=== PATIENT | male | born 1960 | race Caucasian/White ===

== ENCOUNTER 2016-03-21 05:48 | Inpatient (IN) | payer BC ==
--- NOTE | 2016-03-17 22:05 | HP ---
HISTORY AND PHYSICAL: DATE OF ADMISSION: 03/21/16 CHIEF COMPLAINT: H and P for a right total hip replacement. HISTORY OF PRESENT ILLNESS: Mr. Resendez is a 56-year-old gentleman with chronic right knee pain due to advanced degenerative osteoarthritis. His pain is an 8-9 /10 and he states that he is no longer able to walk even a block without significant pain. The patient has failed all conservative therapy including NSAIDs, physical therapy, and steroid injection. The patient is ready to pursue an elective right total knee arthroplasty. PAST MEDICAL HISTORY: 1. Hyperlipidemia. 2. Type 2 diabetes mellitus, uncontrolled. 3. Metabolic syndrome X. 4. Essential hypertension. 5. Pure hypercholesterolemia. PAST SURGICAL HISTORY: 1. Lumbar laminectomy in 1979. 2. Left ankle fracture ORIF in 1994. 3. Right elbow tendon rupture, unknown date. 4. Right knee meniscus in 2008. 5. Right foot toe ostectomy in 2010. 6. Varicose vein laser therapy, unknown date. 7. Right knee arthroscopy/meniscus repair in 2015. MEDICATIONS: 1. Irbesartan 75 mg 1 tablet every morning. 2. Pravastatin sodium 5 mg 1 tablet by mouth once daily at bedtime. 3. Januvia 100 mg 1 by mouth every day. 4. Metformin hydrochloric acid 1000 mg by mouth twice a day. 5. Ibuprofen 800 mg. 6. Glipizide 5 mg. ALLERGIES: No known drug allergies. FAMILY HISTORY: Father, history of myocardial infarction. Mother, history of diabetes. Paternal grandfather, myocardial infarction. SOCIAL HISTORY: The patient denies any smoking or illicit drug use. The patient admits to drinking alcohol 12-24 ounces on the weekends. The patient lives with his . REVIEW OF SYSTEMS: General: Denies fevers, chills, or night sweats. The patient has no known anesthesia problems. HEENT: Denies headache, lightheadedness, or syncopal episodes. Cardiothoracic: Denies any chest pain, heart palpitations, or edema. Pulmonary: Denies any shortness of breath with exertion, chronic cough, or COPD. GI: Denies any nausea, vomiting, diarrhea, or constipation. : Denies any nocturia, urinary frequency, urinary urgency, or kidney issues. MSK: Positive for right knee pain and denies any chronic or intermittent back pain or fractures. No neck pain. Neuro: Denies any paresthesias, numbness, seizures, strokes. Integumentary: Denies any abrasions , lesions, rashes, lumps, or open sores. Endocrine: Denies any diabetes or thyroid issues. Hematology: Denies any easy bruising, anemia, excessive bleeding, or history of DVTs. PHYSICAL EXAMINATION GENERAL: The patient is alert, awake, and oriented, in no acute distress. HEENT: Normocephalic, atraumatic. Hearing and vision are grossly intact. PULMONARY: Lungs are clear to auscultation bilaterally with no wheezes, rales, or rhonchi. CARDIO: Regular rate and rhythm with S1 and S2. No appreciable S3, S4. No murmurs, rubs, or gallops. GI: Normoactive bowel movements in all 4 quadrants with no pain to palpation in all 4 quadrants. MSK: Right lower extremity, the patient's skin is intact, moderate effusion of the knee joint. The patient is able to flex 10 to 120 degrees. No varus or valgus instability. Distally, the patient has 5/5 ankle plantar flexion and dorsiflexion strength. Full sensation to light touch in all nerve distributions and a +2 palpable dorsalis pedis and posterior tibialis pulse. IMPRESSION: Right knee osteoarthritis. PLAN: The patient will undergo a right total knee arthroplasty with Dr. Fox on 03/21/16. The patient has been medically cleared by his primary care provider. He will return to the office in 10 to 14 days for suture removal and followup. X-rays will be obtained at his postop visit. A prescription for Percocet 5/325 has been sent to the pharmacy on record for post- operative pain management. Scripts for Coumadin for postop DVT prophylaxis and Colace to be used as needed for constipation were e-scripted as well. ALEXIS BLEDSOE [id number]/[facility] #: [id number] [facility]
[2016-03-21] MEDS ORDERED: Buffered Lidocaine 1% SYR 3ML* 3 ML/SYR SYRINGE INTRADERM ONE (06:00)
[2016-03-21] MEDS ORDERED: Metoclopramide IV* 5 MG/ML 2 ML VIAL IV SLOW PU ONE (06:00)
[2016-03-21] MEDS ORDERED: Famotidine IV* 10 MG/ML 2 ML (20 mg) IV ONE (06:00)
[2016-03-21] MEDS ORDERED: Metoclopramide IV* 5 MG/ML 2 ML VIAL ONE (06:12)
[2016-03-21] MEDS ORDERED: Famotidine IV* 10 MG/ML 2 ML (20 mg) ONE (06:13)
[2016-03-21] MEDS ORDERED: ceFAZolin 2 GM PREMIX (*) 2 GM/50 ML BAG IVPB ONE (06:13)
[2016-03-21] MEDS ORDERED: Buffered Lidocaine 1% SYR 3ML* 3 ML/SYR SYRINGE ONE (06:13)
[2016-03-21] MEDS ORDERED: Morphine PF AMP (0.5MG/ML)* 5 MG/10 ML AMP ONE (06:51)
[2016-03-21] MEDS ORDERED: fentaNYL* 50 MCG/ML 2 ML VIAL (100 MCG VIAL) ONE (06:51)
[2016-03-21] MEDS ORDERED: Midazolam* 1 MG/ML 5 ML VIAL (5 MG) ONE (06:51)
[2016-03-21] MEDS ORDERED: Dexmedetomidine* 200 MCG/2 ML 2 ML VIAL ONE (06:55)
[2016-03-21] MEDS ORDERED: Bupivacaine 0.5% SDV PF* 30 ML VIAL ONE (06:55)
[2016-03-21] MEDS ORDERED: Propofol* 10 MG/ML 20 ML BTL IV PUSH ONE (06:55)
[2016-03-21] MEDS ORDERED: Polyethylene Glycol 3350* 17 GM PACKET PO PRN (10:27)
[2016-03-21] MEDS ORDERED: Acetaminophen TAB* 325 MG PO PRN (10:27)
[2016-03-21] MEDS ORDERED: Bisacodyl SUPP* 10 MG SUPP PR PRN (10:27)
[2016-03-21] MEDS ORDERED: fentaNYL* 50 MCG/ML 2 ML VIAL (100 MCG VIAL) IV PRN (10:58)
[2016-03-21] MEDS ORDERED: Nalbuphine* 20 MG/ML 1 ML VIAL IV PRN (10:58)
[2016-03-21] MEDS ORDERED: oxyCODONE/Acetamin 5/325 MG* TAB PO PRN (10:58)
[2016-03-21] MEDS ORDERED: Naloxone* 0.4 MG/ML 1 ML VIAL IV PRN (10:58)
[2016-03-21] MEDS ORDERED: DiMENhydriNATE IV* 50 MG/ML VIAL IV PUSH PRN ×2 (10:58)
[2016-03-21] MEDS ORDERED: PROCHLORPERAZINE INJ 5 MG/ML 2 ML VIAL IV PRN ×2 (10:58)
[2016-03-21] MEDS ORDERED: Ondansetron INJ* 2 MG/ML VIAL IV PRN ×2 (10:58)
--- NOTE | 2016-03-21 11:31 | RAD ---
Indication: Post op RIGHT total knee replacement. Comparison: February 05, 2016 Technique: Portable AP and cross table lateral views RIGHT knee. Report: Status post total knee replacement. Post-op fluid and gas is seen in the joint space and anterior subcutaneous tissues. Alignment is anatomic. No periprosthetic fracture evident. IMPRESSION: Normal post-op appearance following total knee replacement.
--- NOTE | 2016-03-21 12:52 | RAD ---
CPT II Codes: 6045F INDICATION: Right knee replacement. Fluoroscopic services provided for referring physician for right knee replacement. 3 spot images demonstrates right knee replacement in place. IMPRESSION: Fluoroscopic services provided for referring physician for right knee replacement.
[2016-03-21] MEDS: ceFAZolin 1 GM in Dextrose (*) 1 GM/50 ML BAG IVPB SCH (16:58)
[2016-03-21] MEDS ORDERED: Warfarin TAB(*) 6 MG PO ONE (17:00)
[2016-03-21] MEDS ORDERED: Dextrose 50% Syringe 50 ML* 25 GM/50 ML SYRINGE IV PUSH PRN (17:41)
[2016-03-21] MEDS ORDERED: metFORMIN* 500 MG TAB PO SCH (21:00)
[2016-03-21] MEDS: Docusate CAP* 100 MG PO SCH (21:27)
--- NOTE | 2016-03-21 23:06 | CONS ---
CONSULTATION REPORT: DATE OF CONSULT: 03/21/16 PRIMARY CARE PROVIDER: Tony Reeder MD. ATTENDING PHYSICIAN: Anoop Covarrubias MD (dictated by Zo Loo NP) PHYSICIAN REQUESTING CONSULTATION: Kianna Fox MD. REASON FOR CONSULTATION: Comanagement in the patient with a history of hypertension and diabetes mellitus. HISTORY OF PRESENT ILLNESS: Mr. Resendez is a 56-year-old male with a past medical history significant for diabetes mellitus, hyperlipidemia and essential hypertension who presents to the hospital today for an elective right total knee arthroplasty with Dr. Fox. Postoperatively, the patient is doing well, states that his pain is controlled. The patient states that leading up to his surgery, he has been in a good state of health except for right knee pain. The patient states that his diabetes is controlled with glucoses generally in the morning at 120 to 140 and in the evenings 90 to 115. The patient denies any fever, chills, chest pain, shortness of breath. He does report some nausea postoperatively. Hospitalists were asked to assist with management of the patient during the postoperative period. PAST MEDICAL HISTORY: 1. Hyperlipidemia. 2. Diabetes mellitus. 3. Metabolic syndrome X. 4. Essential hypertension. PAST SURGICAL HISTORY: 1. Status post a right knee arthroscopy and meniscus repair in 2015. 2. Status post varicose vein laser surgery. 3. Status post right toe ostectomy in 2010. 4. Status post lumbar laminectomy in 1979. 5. Status post left ankle ORIF in 1994. 6. Status post right elbow tendon rupture repair. 7. Status post a right knee meniscus repair in 2008. HOME MEDICATIONS: Include: 1. Irbesartan 75 mg oral daily. 2. Pravastatin 5 mg oral daily. 3. Januvia 100 mg oral daily. 4. Metformin 1000 mg oral twice daily. 5. Motrin 800 mg oral every 6 hours as needed for pain. 6. Glipizide 5 mg oral daily. ALLERGIES: No known drug allergies. FAMILY HISTORY: The patient reports that his father passed at age 62 from an PA and his paternal grandfather also had a history of an PA. The patient's mother has a history of diabetes mellitus. The patient denies any family history of cancer. SOCIAL HISTORY: The patient denies tobacco or recreational drug use. The patient reports drinking alcoholic beverages on the weekends. 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 The patient is and his , Lidia, will be his surrogate decision maker in the event that he is unable to make decisions for himself. REVIEW OF SYSTEMS: I performed a 14-point review of systems. All the pertinent positives and negatives are mentioned in the history of present illness. The remaining review of systems is negative. PHYSICAL EXAM: Vital Signs: Temperature 97.8, heart rate 79, respiratory rate 16, O2 sat 97% on 2 L via nasal cannula, blood pressure 115/57. General Appearance: The patient is alert and appears to be in no acute distress. HEENT : Normocephalic, atraumatic. Pupils are equal and reactive to light. Extraocular movements are intact. Neck: Supple. There is no lymphadenopathy noted. Cardiovascular: Regular rate and rhythm. S1 and S2 are crisp. There are no murmurs, rubs, or gallops heard. Extremities: There is no lower extremity edema. DP and PT pulses are 2+ and symmetric. Respiratory: There is no accessory muscle use. Lungs are clear to auscultation bilaterally. Abdomen : Soft, nontender, nondistended. There are bowel sounds present x4. Musculoskeletal: There is no clubbing or cyanosis noted. The patient exhibits equal strength in all extremities. Skin: The patient has a dressing on his right knee that is clean, dry and intact. Neurological: Cranial nerves II through XII are grossly intact. The patient moves all extremities. Psychological: The patient is calm and cooperative. DIAGNOSTIC STUDIES/LAB DATA: Preop laboratory data from 03/15/16, sodium 136, potassium 4.1, chloride 103, CO2 of 26, BUN 14, creatinine 0.75, glucose 105. White blood cell count 6.7, hemoglobin 15.5, hematocrit 47, and platelet count 151. Preoperative urinalysis was negative and culture had no growth. The patient had a preoperative EKG showing a normal sinus rhythm and a rate of 87. There is no acute signs of ischemia. The patient also had a preoperative chest x-ray showing no active disease. Right knee x-ray from today. Radiologist's impression: Normal postop appearance following total knee replacement. IMPRESSION: Mr. Resendez is a 56-year-old male with past medical history significant for diabetes mellitus, hyperlipidemia and hypertension who underwent an elective right total knee arthroplasty with Dr. Fox. Hospitalists were asked to assist with the comanagement of this patient during his hospitalization. PLAN: 1. Status post right total knee arthroplasty. Postop day. Management will be per Orthopedic surgery. The patient will be given pain medications. The patient's hemoglobin and hematocrit will be trended. The patient will have a urinary catheter in place until postop day 1. 2. Diabetes mellitus. The patient states that his glucose is well controlled at home. While he is here in the hospital, we will hold his Januvia and metformin. The patient will be continued on his home glipizide and placed on lispro sliding scale with fingersticks a.c. and h.s. The patient may resume his Januvia and metformin at discharge. 3. Hypertension. The patient's blood pressures have been on the slightly lower side with some blood pressures in the 80s to the one teens systolic. We will hold the patient's irbesartan today and consider resuming tomorrow based on the patient's blood pressures. 4. Hyperlipidemia. The patient will be continued on statin. 5. Fluids, electrolytes and nutrition. The patient will be on a consistent carbohydrate diet. 6. DVT prophylaxis. Per Orthopedic Surgery, the patient will be on Lovenox and warfarin. 7. Code status. Full code. DISPOSITION: Per Orthopedic Surgery. TIME SPENT: The time for this consultation was 60 minutes, and 30 minutes was spent with the patient discussing medications, past medical history and the events leading up to his arrival today and performing a physical examination. The case has been reviewed with the attending, Dr. Covarrubias, who agrees with the plan of care. Reviewed by DONNA OLIVARES 04/03/16 1424 CC: Tony Reeder MD * [id number]/[facility] #: [id number] GEORGE
[2016-03-22] MEDS ORDERED: diPHENhydraMINE IV* 50 MG/ML 1 ml VIAL (BENADRYL) IV PRN
[2016-03-22] MEDS ORDERED: oxyCODONE/Acetamin 5/325 MG* TAB PO PRN
[2016-03-22] MEDS ORDERED: Ondansetron INJ* 2 MG/ML VIAL IV PRN
[2016-03-22] MEDS ORDERED: Ondansetron TAB* 4 MG PO PRN
[2016-03-22] MEDS: ceFAZolin 1 GM in Dextrose (*) 1 GM/50 ML BAG IVPB SCH ×2 (00:50→07:58)
[2016-03-22] MEDS: oxyCODONE/Acetamin 5/325 MG* TAB PO PRN ×5 (02:24→22:49)
[2016-03-22] MEDS: Morphine INJ* 4 MG/ML 1 ML CARPUJECT IV PRN ×4 (02:25→21:46)
--- NOTE | 2016-03-22 06:17 | OP ---
OPERATIVE REPORT: DATE OF OPERATION: 03/21/16 DATE OF : 60 SURGEON: Kianna Fox MD [employer]PERVISOR [employer] ST[employer]: 1. ALEXIS Yanes 2. ALEXIS Baldwin ANESTHESIOLOGIST: Feroz Marion MD ANESTHESIA: Spinal. PRE-OP DIAGNOSIS: Right knee severe degenerative osteoarthritis. POST-OP DIAGNOSIS: Right knee severe degenerative osteoarthritis. OPERATIVE PROCEDURE: Right total knee arthroplasty. TOURNIQUET TIME: 64 minutes. COMPLICATIONS: None. ESTIMATED BLOOD LOSS: Less than 25 cc. SPECIMEN: Bone and cartilage from the right knee joint sent to pathology. IMPLANTS USED: This is cemented total knee arthroplasty from [employer]. Two Packages of [employer] bone cement. For the femur, a size 6 narrow right Oxinium femoral component. For the tibia, a size 5 right tibial base plate. For the insert, a 9 mm posterior stabilized articular insert with p atellar 35 mm, 3-peg all- poly patella. BRIEF HISTORY/INDICATIONS: Mr. Resendez is a 56-year-old gentleman with years of increasingly severe right knee pain. He failed conservative treatment with antiinflammatories, pain medications, brace wear, physical therapy, and arthroscopy. Radiographs and arthroscopy demonstrated severe loss of ca rtilage along the medial and patellofemoral compartments. He continued to have severe pain and decr eased quality of life. He elected to undergo right total knee arthroplasty. Informed consent was obtained from the patient. He understood the risks of the procedure included b ut were not limited to bleeding, infection, damage to nearby structures, continued pain, need for fu rther surgery, intraoperative fracture, nerve palsy, hardware failure or loosening, stroke, heart at tack, blood clot, and . He wished to proceed. FINDINGS: Intraoperatively, the patient has been noted to have significant degeneration in the medi al and patellofemoral compartments. There was full- thickness loss of cartilage in the weightbearin g portions of these compartments. DESCRIPTION OF PROCEDURE: Mr. Resendez was identified in the preanesthesia unit. His right lower extr emity was marked as the correct operative site. Informed consent was signed and placed in the chart . He was taken to the operating room and placed under spinal anesthesia. Gastelum catheter was placed . Tourniquet was placed on the right side. Right lower extremity was prepped and draped in usual s terile fashion. Preop time-out was made to correctly identify the patient's side and site. Appropr iate perioperative antibiotics were given within one hour of incision. Tourniquet was inflated unti l the tourniquet time for this procedure was 64 minutes. A 14 cm midline incision was made with a 1 0 blade. This was carried down to the extensor mechanism. A new 10 blade was used to make a standa rd medial parapatellar arthrotomy. The patella subluxed laterally. Soft tissue was elevated off th e superomedial tibia to the mid sagittal plane. Any osteophytes were carefully removed. The knee w as flexed up. The anterior horn of the lateral meniscus and ACL were sharply released. A drill was used to enter the distal femur. There was some lateral femoral condylar hypoplasia noted. Intrame dullary distal femoral cutting guide was pinned into appropriate position on the distal femur. The oscillating saw was used to make the appropriate distal femoral cut. Next, an external rotation guid e was placed on the distal femur and pinned into position. Femur was sized to a size 6. Size 6 mul ti cutting jig was placed on the distal femur and pinned into proper position. Oscillating saw was used to make the appropriate chamfer cuts. Any excess bony fragments were carefully removed. The P CL was completely released and the tibia was subluxed anteriorly. Extramedullary tibial cutting walker de was pinned on the proximal tibia. Oscillating saw was used to make the proximal tibial cut and t he tibial bone was carefully removed. Knee was brought into full extension. Spacer block had good fit. There was good medial and lateral ligamentous balancing. Flexion and extension gaps were well balanced. Lamina living manager was placed both medially and laterally. Any remaining meniscus was carefully remove d with an electrocautery. Posterior femoral condyles were checked for any osteophytes and these wer e removed with a curved osteotome and curette. Tibial tray and drop kay once again confirmed satisfa ctory proximal tibial cut. A trial size 6 narrow right femur was impacted onto the distal femur. The box for the posterior sta bilized implant was prepared using a reamer and box cut osteotome. A trial size 5 tibial tray and 9 mm insert was placed. The knee was taken through a range of motion. The knee was stable enough, shearer d good stability, full extension to 125 degrees of flexion with good patellofemoral tracking. The patella was everted. A 9 mm of patellar bone and cartilage were carefully removed with an oscil lating saw. Patella was sized to a size 35. Three peg holes were drilled through size 35 guide. A 35 trial patella was placed and the knee was taken through range of motion. Patellofemoral trackin g was satisfactory. At this point, all the trials were carefully removed. The tibia was subluxed anteriorly and sized t o a size 5. The lateral tibial plateau was also hypoplastic. Therefore, the size 5 was the appropri ate fit. Proximal tibia was prepared using a size 5 keel punch. All bony cut surfaces were copious ly irrigated with sterile saline and dried. The final components were cemented into place, starting with the tibia, next the femur, and last the patella. A 9 mm insert trial was placed and the knee was brought into full extension. The cement was allowed to fully cure and tourniquet was turned ramesh n. The insert trial was removed once the cement was fully cured. Any excess cement was carefully r emoved from around the implants. Capsule was checked for any bleeding. The knee was copiously irri gated with sterile saline. A 9 mm posterior stabilized articular insert was chosen as the final imp lant. This was impacted and locked down to the tibial tray without difficulty. Stability of the tiffanie er was checked and rechecked and noted to be stable. The knee was once again copiously irrigated wi th sterile saline. The extensor mechanism was closed using interrupted #1 Vicryls. The rest of the incision was closed in a layered fashion using 0 and 2-0 Vicryls. Skin was closed using running 3- 0 nylon suture. Sterile, Xeroform, 4x4s, and Webril were used to cover the incision. ROSITA wrap and cold packs were placed over this. The patient's anesthesia was reversed without difficulty. He was taken to the PACU in stable condition. Intended weightbearing will be weightbearing as tolerated. Intended DVT prophylaxis will be Coumadin with a Lovenox bridge. [id number]/[facility] #: [id number]
[2016-03-22 07:01] LABS: Hematocrit 38 % (42-52); Hemoglobin 12.7 g/dl (14.0-18.0)
[2016-03-22 07:18] LABS: BUN/Creatinine Ratio 17.3 (8-20); Calcium 8.5 mg/dL (8.6-10.3); EGFR African American 138.5 (>60); EGFR Non-African American 107.7 (>60)
--- NOTE | 2016-03-22 07:36 | PN ---
Progress Note - Progress Note SOAP: Subjective: Pt. reports pain is well controlled. Objective: RLE - dressing c/d/i, distally no significant edema. +df/pf, full sens lt, 2+ dp pulse. Vital Signs: Temp Pulse Resp BP Pulse Ox 97.9 F 87 16 113/69 97 03/22/16 03:42 03/22/16 03:42 03/22/16 06:30 03/22/16 03:42 03/22/16 03:44 Laboratory Results - last 24 hr 03/21/16 03/21/16 03/21/16 10:44 18:31 22:25 Hgb Hct INR (Anticoag Therapy) Sodium Potassium Chloride Carbon Dioxide Anion Gap BUN Creatinine Est GFR ( Amer) Est GFR (Non-Af Amer) BUN/Creatinine Ratio Glucose POC Glucose (mg/dL) 188 H 204 H 239 H Calcium 03/22/16 03/22/16 03/22/16 06:46 06:46 06:46 Hgb 12.7 L Hct 38 L INR (Anticoag Therapy) 1.04 Sodium 133 Potassium 4.0 Chloride 99 L Carbon Dioxide 28 Anion Gap 6 BUN 13 Creatinine 0.75 Est GFR ( Amer) 138.5 Est GFR (Non-Af Amer) 107.7 BUN/Creatinine Ratio 17.3 Glucose 164 H POC Glucose (mg/dL) Calcium 8.5 L Assessment: 56 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
[2016-03-22] MEDS: Docusate CAP* 100 MG PO SCH ×2 (07:58→21:46)
[2016-03-22] MEDS: Vitamin THERAPEUTIC TAB PO SCH (07:58)
[2016-03-22] MEDS: Atorvastatin* 10 MG TAB PO SCH (07:59)
[2016-03-22] MEDS: glipiZIDE TAB.XL* 2.5 MG PO SCH (08:00)
[2016-03-22] MEDS: Insulin LISPRO* 1 UNITS UNIT SUBCUT SCH ×4 (08:02→18:30)
[2016-03-22] MEDS ORDERED: SitaGLIPtin (NF) 100 MG TAB PO SCH (09:00)
[2016-03-22] MEDS: oxyCODONE TAB* 5 MG TAB PO PRN ×2 (09:50→18:35)
[2016-03-22] MEDS: Enoxaparin(*) 30 MG/0.3 ML SYR SUBCUT SCH (12:43)
[2016-03-22] MEDS ORDERED: Warfarin TAB(*) 4 MG PO ONE (17:00)
--- NOTE | 2016-03-22 17:22 | PN ---
Subjective Date of Service: 03/22/16 Interval History: Patient seen and examined at bedside. Pt states that he is feeling well today, pain is controlled. Denies chills, chest discomfort, shortness of breath, N/V/ D. Pt states that he feels "warm". Pt feels like his his right thigh is "tight". Family History: Unchanged from Admission Social History: Unchanged from Admission Past Medical History: Unchanged from Admission Objective Active Medications: Acetaminophen (Tylenol Tab*) 650 mg PO Q4H PRN Reason: PAIN OR TEMPERATURE Atorvastatin Calcium (Lipitor*) 5 mg PO QAM RIYA Bisacodyl (Dulcolax Supp*) 10 mg OK DAILY PRN Reason: constipation Dextrose (D50w Syringe 50 Ml*) 12.5 gm IV PUSH .FOR FS < 60 - SS PRN Reason: FS < 60 Diphenhydramine HCl (Benadryl Iv*) 12.5 mg IV Q6H PRN Reason: PRURITIS Docusate Sodium (Colace Cap*) 100 mg PO BID RIYA Enoxaparin Sodium (Lovenox(*)) 30 mg SUBCUT Q24H RIYA Glipizide (Glucotrol Xl*) 5 mg PO DAILY [facility] Lactated Ringer's (Lactated Ringers 1000 Ml Bag*) 1,000 mls @ 100 mls/hr IV PER RATE [facility] Insulin Human Lispro (Humalog*) 0 - 15 units SUBCUT AC RIYA Reason: Protocol Lactulose (Lactulose*) 30 ml PO Q6H PRN Reason: constipation Magnesium Hydroxide (Milk Of Magnesia Liq*) 30 ml PO Q6H PRN Reason: constipation Morphine Sulfate (Morphine Inj (Syringe)*) 4 mg IV Q2H PRN Reason: PAIN Multivitamins (Theragran Tab*) 1 tab PO DAILY RIYA Ondansetron HCl (Zofran Inj*) 4 mg IV Q6H PRN Reason: nausea Ondansetron HCl (Zofran Tab*) 4 mg PO Q6H PRN Reason: NAUSEA Oxycodone HCl (Roxycodone Tab*) 10 mg PO Q4H PRN Reason: SEVERE PAIN Oxycodone/Acetaminophen (Percocet 5/325 Tab*) 1 tab PO Q3H PRN Reason: PAIN - MODERATE Oxycodone/Acetaminophen (Percocet 5/325 Tab*) 2 tab PO Q3H PRN Reason: PAIN - MODERATE Pharmacy Profile Note (Coumadin Daily Reminder*) 0 note FOLLOW UP 1700 RIYA Polyethylene Glycol/Electrolytes (Miralax*) 17 gm PO DAILY PRN Reason: Constipation Vital Signs 03/21/16 03/21/16 03/21/16 18:33 19:58 20:25 Temperature 98.0 F 98.3 F Pulse Rate 85 89 Respiratory 22 16 20 Rate Blood Pressure 115/68 109/67 (mmHg) O2 Sat by Pulse 97 97 Oximetry 03/22/16 03/22/16 03/22/16 00:02 02:24 02:25 Temperature 97.8 F Pulse Rate 91 Respiratory 16 16 16 Rate Blood Pressure 109/69 (mmHg) O2 Sat by Pulse 99 Oximetry 03/22/16 03/22/16 03/22/16 03:25 03:42 03:44 Temperature 97.9 F Pulse Rate 87 Respiratory 16 17 Rate Blood Pressure 113/69 (mmHg) O2 Sat by Pulse 99 97 Oximetry 03/22/16 03/22/16 03/22/16 04:24 06:30 07:35 Temperature 99.4 F Pulse Rate 88 Respiratory 16 16 16 Rate Blood Pressure 113/70 (mmHg) O2 Sat by Pulse 99 Oximetry 03/22/16 03/22/16 03/22/16 07:58 08:00 08:30 Temperature Pulse Rate Respiratory 16 16 16 Rate Blood Pressure (mmHg) O2 Sat by Pulse 94 Oximetry 03/22/16 03/22/16 03/22/16 08:58 09:50 10:54 Temperature Pulse Rate Respiratory 16 16 Rate Blood Pressure (mmHg) O2 Sat by Pulse 94 Oximetry 03/22/16 03/22/16 03/22/16 11:14 11:50 11:55 Temperature 98.4 F Pulse Rate 94 Respiratory 16 16 16 Rate Blood Pressure 122/62 (mmHg) O2 Sat by Pulse 95 Oximetry 03/22/16 03/22/16 03/22/16 15:31 15:33 15:42 Temperature 100.0 F Pulse Rate 114 Respiratory 16 16 Rate Blood Pressure 124/65 (mmHg) O2 Sat by Pulse 97 95 Oximetry 03/22/16 15:47 Temperature 100.4 F Pulse Rate 109 Respiratory Rate Blood Pressure (mmHg) O2 Sat by Pulse Oximetry Oxygen Devices in Use Now: None Appearance: NAD, sitting up in bed Eyes: No Scleral Icterus, PERRLA Ears/Nose/Mouth/Throat: NL Teeth, Lips, Gums, Mucous Membranes Moist Neck: NL Appearance and Movements; NL JVP, Trachea Midline Respiratory: Symmetrical Chest Expansion and Respiratory Effort, Clear to Auscultation Cardiovascular: NL Sounds; No Murmurs; No JVD, RRR - , tachy Abdominal: NL Sounds; No Tenderness; No Distention - Bowel sounds present Extremities: - - 1+ edema to right LE Skin: - - Dressing to right knee clean, dry and intact Neurological: Alert and Oriented x 3, NL Muscle Strength and Tone Lines/Tubes/Other Access: Clean, Dry and Intact Peripheral IV - site benign Nutrition: Taking PO's Result Diagrams: 03/22/16 06:46 03/22/16 06:46 Assess/Plan/Problems-Billing Assessment: Ms. Resendez is a 56 yo male with PMH significant for DM, HLD, and HTN who presented to the hospital for an elective right total knee replacement. Hospitalists were asked to assist with co-medical management of Pt's HTN and DM. - Patient Problems (1) Status post total right knee replacement Code(s): Z96.651 - PRESENCE OF RIGHT ARTIFICIAL KNEE JOINT SNOMED Code(s): 8611585774742 Comment: - POD #1 - Continue to trend HH - Continue PT/OT, pain management and bowel regime (2) Diabetes Code(s): E11.9 - TYPE 2 DIABETES MELLITUS WITHOUT COMPLICATIONS SNOMED Code(s) : 82083036 Comment: - Glucose 180-240's - Will increase Lispro SS to high dose - Continue Glipizide - Continue to hold metformin and Januvia, resume at discharge (3) HTN (hypertension) Code(s): I10 - ESSENTIAL (PRIMARY) HYPERTENSION SNOMED Code(s): 27125582 Comment: - SBP 110-120's - Resume Irbesartan in AM (4) HLD (hyperlipidemia) Code(s): E78.5 - HYPERLIPIDEMIA, UNSPECIFIED SNOMED Code(s): 55912118 Comment: - Continue statin (5) DVT prophylaxis Code(s): KUB0792 - SNOMED Code(s): 963745522 Comment: - Continue Lovenox and warfarin (6) Full code status Code(s): Z78.9 - OTHER SPECIFIED HEALTH STATUS SNOMED Code(s): 012482293 Status and Disposition: Inpatient. Disposition per Orthopedic surgery.
[2016-03-22] MEDS: Magnesium Hydroxide LIQ* 30 ML UDC PO PRN (20:08)
[2016-03-23] MEDS: oxyCODONE TAB* 5 MG TAB PO PRN ×3 (01:55→13:27)
[2016-03-23] MEDS: oxyCODONE/Acetamin 5/325 MG* TAB PO PRN ×2 (05:24→09:57)
[2016-03-23] MEDS: Magnesium Hydroxide LIQ* 30 ML UDC PO PRN (05:28)
[2016-03-23 07:00] LABS: Hematocrit 34 % (42-52); Hemoglobin 11.4 g/dl (14.0-18.0)
[2016-03-23] MEDS: Insulin LISPRO* 1 UNITS UNIT SUBCUT SCH ×2 (08:01→12:35)
[2016-03-23] MEDS: Docusate CAP* 100 MG PO SCH (08:03)
[2016-03-23] MEDS: Vitamin THERAPEUTIC TAB PO SCH (08:03)
[2016-03-23] MEDS: Atorvastatin* 10 MG TAB PO SCH (08:03)
[2016-03-23] MEDS: glipiZIDE TAB.XL* 2.5 MG PO SCH (08:03)
[2016-03-23] MEDS ORDERED: Losartan TAB* 25 MG PO SCH (09:00)
--- NOTE | 2016-03-23 10:06 | PN ---
Progress Note - Progress Note SOAP: Subjective: [Pt was seen after PT today. Pt states that he is pushing himself at PT and the pain is to be expected. Pt states that the pain is under control though. Deneis any SOB, Chest pain or ] Objective: RLE - dressing c/d/i. NV intact distally with no significant edema. +df/pf, 2 + dp and pt pulse. Vital Signs Temp 98.3 F 03/23/16 07:08 Pulse 96 03/23/16 07:08 Resp 18 03/23/16 09:57 BP 137/70 03/23/16 07:08 Pulse Ox 95 03/23/16 07:46 Intake & Output 03/22/16 03/23/16 03/23/16 18:59 06:59 18:59 Intake Total 583 1880 400 Output Total 875 1480 850 Balance -292 400 -450 Intake: IV Fluids 383 LR 383 Oral 200 1880 400 Output: Urine 875 1480 850 Laboratory Results - last 24 hr 03/22/16 03/22/16 03/22/16 12:27 16:50 21:50 Hgb Hct INR (Anticoag Therapy) POC Glucose (mg/dL) 242 H 243 H 211 H 03/23/16 03/23/16 03/23/16 06:39 06:39 07:12 Hgb 11.4 L Hct 34 L INR (Anticoag Therapy) 1.19 H POC Glucose (mg/dL) 242 H Assessment: 56 yo M pod 2 s/p RTKA Plan: 8 mg coumadin tonight wbat rle pt/ot D/C today. Follow up at office in 10-14 days.
[2016-03-23] MEDS: Enoxaparin(*) 30 MG/0.3 ML SYR SUBCUT SCH (12:30)
--- NOTE | 2016-03-23 12:37 | DS ---
DISCHARGE SUMMARY: DATE OF ADMISSION: 03/21/16 DATE OF DISCHARGE: 03/23/16 PROVIDER: Dr. Kianna Fox ADMITTING DIAGNOSIS: Right knee osteoarthritis. CONSULTATIONS: Occupational Therapy, Physical Therapy. HPI: Mr. Resendez is a 56-year-old gentleman with chronic right knee pain due to advanced degenerative osteoarthritis. The patient stated that he was no longer able to walk even a block without significant pain. The patient failed all conservative therapy including NSAIDs, physical therapy, and steroid injection and electively pursued a right total knee arthroplasty. HOSPITAL COURSE: The patient was admitted to [facility] on 03/21/16 and underwent a right total knee arthroplasty with no complications. The patient recovered briefly in the post-anesthesia care unit and was then transferred to the short-stay surgical unit in stable condition. On postop day #1, the patient's H and H was 12.7 and 38. The INR was 1.04 after a 6 mg dose of Coumadin the night before. Dressing was clean, dry, and intact on the right lower extremity and the right lower extremity was neurovascularly intact. The patient could demonstrate dorsiflexion and plantar flexion with good strength. The patient was able to get out of the bed with physical therapy. The patient' s Gastelum was also discontinued on postop day 1. Pain was controlled with morphine 4 mg at 21:46. On postop day 2, incision was found to be benign with minimal drainage. No erythema or warmth. The patient's H and H was 11.4 and 34. The INR was 1.19 after an 8 mg dose of Coumadin the night before. The patient's pain was controlled with 10 mg of oxycodone at 1:55 and 2 tabs of Percocet 5/325 at 05:24. The patient's pain was well controlled and found to be stable for discharge. Throughout the hospital course, vital signs remained stable and the patient was afebrile. DISCHARGE CONDITION: Good. DISCHARGE MEDICATIONS: New medications: 1. Percocet 5/325. 2. Colace 100 mg. 3. ECASA 325 mg 1 tab po bid x 1 month. Home medications: 1. Irbesartan 75 mg. 2. Pravastatin sodium 5 mg. 3. Januvia 100 mg. 4. Metformin 1000 mg. 5. Ibuprofen 800 mg. 6. Glipizide 5 mg. DISCHARGE INSTRUCTIONS: The patient will call the office if his temperature should exceed 101 degrees Fahrenheit; if the leg feels warm, tender, or painful. If he cannot walk or move his knee, if his incision is red, swollen, or draining pus, and if he feels lightheaded, short of breath, or have chest pain, go to the ER. Apply ice over the dressing as needed for 15 to 20 minutes at a time. Do not submerge wound in water. Due to his low INR levels the option of aspirin twice daily was given to the patient. He would like to proceed with ECASA 325 mg po BID for one month and we will discontinue coumadin altogether. Follow up with Dr. Fox in clinic 10 to 14 days after discharge. Continue physical therapy at home. Weightbearing status is to be continued and followed, weightbearing as tolerated on the right lower extremity. ALEXIS BLEDSOE [id number]/[facility] #: [id number] MTDLori
[2016-03-23 13:07] VITALS: BP 145/81
== END 2016-03-23 13:50 | disposition home health service (06) | DRG 302 ==
LOC: AA 05:48 → SSU 14:16
PROVIDERS: ADMIT Orthopaedic Surgery Adult Reconstructive Orthopaedic Surgery; ATTEND Orthopaedic Surgery Adult Reconstructive Orthopaedic Surgery
PROC: 0SRC0J9 Replacement of Right Knee Joint with Synthetic Substitute, Cemented, Open Approach (ICD-10-PCS; principal; 2016-03-21 07:30)
DX: M17.11 Unilateral primary osteoarthritis, right knee (principal); E88.81 Metabolic syndrome and other insulin resistance; E78.5 Hyperlipidemia, unspecified; I10 Essential (primary) hypertension; E78.00 Pure hypercholesterolemia, unspecified; E11.9 Type 2 diabetes mellitus without complications; Z82.49 Family history of ischemic heart disease and other diseases of the circulatory system; Z83.3 Family history of diabetes mellitus; Z72.89 Other problems related to lifestyle; Z79.82 Long term (current) use of aspirin; Z79.84 Long term (current) use of oral hypoglycemic drugs
CPT/HCPCS: 36415; 76000; 80048; 85014; 85018; 85610; 88305; 88311; 94760; A9270-GY; C1776; J0690; J1650; J2250; J2270; J2704; J2765; J3010

== ENCOUNTER → 2018-04-23 05:35 | Day surgery (SDC) | payer BC ==
--- NOTE | 2018-04-20 09:43 | HP ---
AMENDED REPORT NOW INCLUDES COSIGNER DESIGNATION HISTORY AND PHYSICAL: DATE OF ADMISSION/SURGERY: 05/05/18 DATE OF OFFICE VISIT: 04/13/18 SURGEON: Kianna Fox MD. * (DICTATED BY ALEXIS ROSADO) PROCEDURE: Left knee arthroscopy with partial meniscectomy, possible chondroplasty, possible synovectomy. CHIEF COMPLAINT: Left knee pain. HISTORY OF PRESENT ILLNESS: Mr. Resendez is a 58-year-old gentleman with complaints of left knee pain. He has failed conservative treatment and elected to proceed with the left knee arthroscopy. PAST MEDICAL HISTORY: Hypertension, diabetes, and high cholesterol. PAST SURGICAL HISTORY: Right knee scope x2, right total knee arthroplasty, ORIF of the left ankle, right toe surgery and lumbar diskectomy. CURRENT MEDICATIONS: 1. Gabapentin 100 mg twice a day. 2. Metformin 1000 mg twice a day. 3. Januvia 50 mg daily. 4. Pravastatin 20 mg a day. 5. Candesartan 10 mg a day. ALLERGIES: No known drug allergies. FAMILY HISTORY: Diabetes and coronary artery disease. SOCIAL HISTORY: A 58-year-old gentleman, who denies the use of tobacco, drugs. Uses occasional alcohol. REVIEW OF SYSTEMS: A complete 14-point of review of systems was reviewed with the patient, is positive for history of diabetes and seizure in the past. He denies history of DVT, PE, hepatitis, HIV, or anesthesia problems. PHYSICAL EXAMINATION GENERAL: He is well-developed, well-nourished, in no acute distress. VITAL SIGNS: He stands 71 inches tall, weighs 242 pounds, his blood pressure is 168/88, his heart rate is 113. HEENT: Normocephalic, atraumatic. NECK: Supple. No palpable lymph nodes. PULMONARY: Lungs are clear to auscultation bilaterally. CARDIO: Regular rate and rhythm. Strong S1, S2. ABDOMEN: Soft, nontender, nondistended. NEUROLOGICAL: Alert and oriented x3. MUSCULOSKELETAL: Left lower extremity: The skin is intact. There is no open wounds or abrasions. There is mild to moderate joint effusion. There is some tenderness over the medial and lateral joint line. Positive Edvin's, positive Apley's, negative Irene's. His calf is soft, nontender. He is able to dorsiflex and plantarflex. He has a 2+ dorsalis pedis pulse. ASSESSMENT AND PLAN: Mr. Resendez is a 58-year-old gentleman with complaints of left knee pain. MRI confirmed his meniscus tear. He has elected to proceed with left knee arthroscopy with partial meniscectomy, possible chondroplasty, possible synovectomy. The surgery is scheduled for 05/05/[address] Fox discussed the risks and benefits of the surgery at today's visit and all of his questions were answered. He will follow up with Dr. Fox 2 weeks after the surgery. ALEXIS ROSADO [id number]/[facility] #: [id number] MTDD
[~2018-04-23 05:35] MED LIST: Buffered Lidocaine 1% SYRIN* 1 ML/SYRINGE INTRADERM ONE; Chloroprocaine 2%* 20 ML VIAL ONE; Dexamethasone IV* 4 MG/ML 1 ML (4 MG) IV SLOW PU ONE; Dexamethasone IV* 4 MG/ML 1 ML (4 MG) ONE; DiMENhydriNATE IV* 50 MG/ML VIAL IV PUSH PRN; EPINEPHRINE 1 MG/ML 1 ML VIAL ONE; Famotidine IV* 10 MG/ML 2 ML (20 mg) IV ONE; Famotidine IV* 10 MG/ML 2 ML (20 mg) ONE; Ketorolac INJ* 30 MG/ML 1 ML VIAL ONE; Lactated Ringers 1000 ML Bag* 1,000 ML IV SCH; Midazolam* 1 MG/ML 5 ML VIAL (5 MG) ONE; Naloxone* 0.4 MG/ML 1 ML VIAL IV PRN; Ondansetron INJ* 2 MG/ML VIAL IV PRN; Ondansetron INJ* 2 MG/ML VIAL ONE; Phenylephrine INJ* 10 MG/ML 1 ML VIAL (10 MG) ONE; Propofol* 10 MG/ML 20 ML BTL ONE; ROPIVACAINE 5 MG/ML 30 ML BTL (0.5%) ONE; ceFAZolin 2 GM PREMIX in ORs 2 GM/50 ML BAG IVPB ONE; fentaNYL* 50 MCG/ML 2 ML VIAL (100 MCG VIAL) IV PRN; fentaNYL* 50 MCG/ML 2 ML VIAL (100 MCG VIAL) ONE; methylPREDNISolone ACETATE 80* 80 MG/ML 1 ML VIAL ONE; oxyCODONE/Acetamin 5/325 MG* TAB PO PRN
[2018-04-23 10:46] VITALS: BP 147/90
--- NOTE | 2018-04-23 23:17 | OP ---
OPERATIVE REPORT: DATE OF OPERATION: 04/23/18 DATE OF : 60 ATTENDING SURGEON: Kianna Fox MD. [employer]OD LAYUP LINE BACK FEEDER: ALEXIS Yanes. Ms. Ramos did help throughout the procedure with preparation of the leg, wound retraction, manipul ation of the knee and wound closure. ANESTHESIOLOGIST: Dr. Rolle. ANESTHESIA: Spinal. PRE-OP DIAGNOSIS: Left knee anterior synovitis with calcification. POST-OP DIAGNOSES: 1. Left knee anterior synovitis with calcification. 2. Medial meniscal tear. 3. Severe degenerative osteoarthritis. OPERATIVE PROCEDURE: Left total knee arthroplasty with partial medial meniscectomy, anterior synovec kuldeep, medial chondroplasty. COMPLICATIONS: None. ESTIMATED BLOOD LOSS: Less than 25 cc. SPECIMEN: None. BRIEF HISTORY/INDICATIONS: Mr. Resendez is a 58-year-old gentleman who developed severe left knee pain and swelling. Conservative treatment with anti- inflammatories, crutches, and interarticular inject ion failed to relieve his pain. He had an MRI which showed a calcification in the infrapatellar fat p ad as well as the medial meniscal tear. The patient elected to undergo left knee arthroscopy due to continued pain and decreased quality of life. Informed consent was obtained from the pain. He under stood the risks of surgery included, but were not limited to bleeding, infection, damage to nearby st ructures, continued pain, need for further surgery, re-tear of the meniscus, progression of arthritis , stroke, heart attack, blood clot, and . He wished to proceed. INTRAOPERATIVE FINDINGS: Intraoperatively, the patient was noted to have severe grade 3 and 4 Outerb ridge cartilage changes in the patellar femoral compartment and medial compartment of the knee joint. He had a radial tear along the anterior portion of the medial meniscus. This is in the white-red z one. He had a large amount of inflamed anterior synovitis and hemosiderin-colored synovitis in the i nfrapatellar fat pad. DESCRIPTION OF PROCEDURE: Mr. Resendez was identified in the preanesthesia unit. His left lower extrem ity was marked as the correct operative site. Informed consent was signed and placed in the chart. The patient was taken to the operating room and placed under spinal anesthesia. Left lower extremity was prepped and draped in the usual sterile fashion. Preop time-out was made to correctly identify the patient, side, and site. Appropriate perioperative antibiotics were given within 1 hour of incis ion. Standard anterolateral portal incision was made with a 10 blade. Trocar was introduced. As soon as the light and water source was turned on, there was immediate visualization of the suprapatellar pouc h. A tour of the knee joint was performed. Suprapatellar pouch had no obvious abnormalities. Diaz lofemoral compartment showed severe end-stage arthritis with grade 3 and 4 Outerbridge cartilage solitario ges. There was large surface area of exposed subchondral bone along the medial patellar facet as wel l as exposed subchondral bone along the majority of the trochlea of the femur. Medial gutter showed no loose body or plica. Anterior joint line showed extensive synovectomy and then the area of the in frapatellar fat pad where there was hemosiderin staining and inflammation. The medial meniscus showe d a radial tear along the anterior portion of the white-red zone. Medial femoral condyle cartilage s howed exposed subchondral bone and large cartilage flapping. ACL and PCL were intact. The knee was placed in a [id number] position. The lateral meniscus had no obvious tear. Lateral cartilage shearer d minimal degenerative changes. Lateral gutter showed no loose body or plica. Under direct visualization, a medial portal incision was made with a 15 blade. Probe was introduced a nd a second tour of the knee joint was performed. No additional findings were noted. Shaver and rad iofrequency ablation wand were used to perform partial anterior synovectomy. This was performed unti l there was no longer any direct impingement with range of motion of the patellofemoral compartment w ith flexion and extension. Radiofrequency ablation wand was used to smooth the edges of the torn car tilage along the medial femoral condyle in the medial compartment. A straight biter and shaver were used to perform partial medial meniscectomy. A smooth border of the meniscus was obtained. Further probing of the medial meniscus showed no additional tears. The knee was copiously irrigated with sterile saline. All instruments were removed. Incisions were closed using 3-0 nylon suture. Intra-articular injection of 80 mg of Depo-Medrol and 4 cc of 1% lido caryn were placed in the knee joint. The patient's incisions were covered with Xeroform, 4x4s, and We bril. Tyrone wrap and cold pack were placed over this. The patient's anesthesia was reversed without d ifficulty. She was taken to the PACU in stable condition. Intended weightbearing will be weightbear ing as tolerated. Intended DVT prophylaxis will be aspirin. [id number]/[facility] #: [id number]
== END | disposition home or self-care (01) ==
LOC: OR 05:35
PROVIDERS: ATTEND Orthopaedic Surgery Adult Reconstructive Orthopaedic Surgery
DX: M65.862 Other synovitis and tenosynovitis, left lower leg (principal); M23.204 Derangement of unspecified medial meniscus due to old tear or injury, left knee; M17.12 Unilateral primary osteoarthritis, left knee; I10 Essential (primary) hypertension; E11.9 Type 2 diabetes mellitus without complications; Z79.84 Long term (current) use of oral hypoglycemic drugs
CPT/HCPCS: J0690; J1040; J1100; J1885; J2250; J2400; J2405; J2704; J2795; J3010

== ENCOUNTER → 2018-11-10 08:42 | Day surgery (SDC) | payer BC ==
[~2018-11-10 08:42] MED LIST changes: -Chloroprocaine 2%* 20 ML VIAL ONE; +Cyclopentolate 1% OPTH.SOL* 2 ML BTL ONE; -Dexamethasone IV* 4 MG/ML 1 ML (4 MG) IV SLOW PU ONE; -Dexamethasone IV* 4 MG/ML 1 ML (4 MG) ONE; -DiMENhydriNATE IV* 50 MG/ML VIAL IV PUSH PRN; -EPINEPHRINE 1 MG/ML 1 ML VIAL ONE; -Famotidine IV* 10 MG/ML 2 ML (20 mg) IV ONE; -Famotidine IV* 10 MG/ML 2 ML (20 mg) ONE; +Ketorolac 0.5% OPHTH (NF) 0.5 % 5 ML BTL ONE; -Ketorolac INJ* 30 MG/ML 1 ML VIAL ONE; -Lactated Ringers 1000 ML Bag* 1,000 ML IV SCH; +Lidocaine 1% MPF ** 5 ML VIAL ONE; +Midazolam* 1 MG/ML 2 ML VIAL (2 MG) ONE; -Midazolam* 1 MG/ML 5 ML VIAL (5 MG) ONE; -Naloxone* 0.4 MG/ML 1 ML VIAL IV PRN; +Neomycin/Polymy/Dex OPHTH.OIN* 3.5 GM ONE; -Ondansetron INJ* 2 MG/ML VIAL IV PRN; -Ondansetron INJ* 2 MG/ML VIAL ONE; -Phenylephrine INJ* 10 MG/ML 1 ML VIAL (10 MG) ONE; +Phenylephrine OPHTH SOL 2.5%* 2 ML ONE; -Propofol* 10 MG/ML 20 ML BTL ONE; -ROPIVACAINE 5 MG/ML 30 ML BTL (0.5%) ONE; +Tetracaine 0.5% OPTH.SOL 4 ML* 1 DROP BTL ONE; +Tropicamide 1% OPTH.SOL* BTL ONE; -ceFAZolin 2 GM PREMIX in ORs 2 GM/50 ML BAG IVPB ONE; -fentaNYL* 50 MCG/ML 2 ML VIAL (100 MCG VIAL) IV PRN; -methylPREDNISolone ACETATE 80* 80 MG/ML 1 ML VIAL ONE; -oxyCODONE/Acetamin 5/325 MG* TAB PO PRN
[2018-11-10 10:57] VITALS: BP 128/66
--- NOTE | 2018-11-10 12:57 | OP ---
DATE OF OPERATION: 11/10/18 [facility] DATE OF : 60 SURGEON: Charly Siddiqui MD ICE SKATING INSTRUCTOR: None. ANESTHESIA: Topical with intravenous sedation. PRE-OP DIAGNOSIS: Cataract, right eye. POST-OP DIAGNOSIS: Cataract, right eye. OPERATIVE PROCEDURE: Phacoemulsification and cataract extraction with posterior chamber intraocular lens implant, right eye. COMPLICATIONS: None. BLOOD LOSS: None. DESCRIPTION OF PROCEDURE: The patient was brought to the operating room and received a small amount of intravenous sedation. A drop of Tetracaine was placed in his right eye. He was prepped and draped in the usual sterile fashion for ophthalmic surgery and attention was directed to the right eye where a speculum was placed. A paracentesis was created at the 11 o'clock position and 0.1 cc of 1 percent preservative-free Lidocaine was injected into the anterior chamber followed by DisCoVisc. The eye was digitally stabilized while a 2.75 mm keratome was used to create a triplanar clear corneal incision at the 9 o'clock position. A continuous curvilinear capsulorrhexis was created with a cystotome and Utrata forceps. BSS on a cannula was used to hydrodissect the lens from the capsule. Phacoemulsification was performed in a divide-and- conquer technique to create four fragments which were removed. Residual cortical material was removed with irrigation and aspiration. DisCoVisc was used to inflate the capsular bag and an [id number] 22.0 diopter lens was folded and inserted into the capsular bag. DisCoVisc was removed using irrigation and aspiration. BSS on a cannula was used to hydrate the corneal stroma and seal the wound. At the end of the case the pupil was round and the lens was centered. The eye was of normal pressure and the wound was water tight. The speculum was removed and topical Maxitrol ointment was placed on the surface of the eye. The eye was closed, patched and shielded and the patient was sent to the recovery room in stable condition with post operative instructions and follow-up appointment given. [id number]/[facility] #: [id number] MTDLori
== END | disposition home or self-care (01) ==
LOC: OREAST 08:42
PROVIDERS: ATTEND Ophthalmology
DX: H25.11 Age-related nuclear cataract, right eye (principal); E11.65 Type 2 diabetes mellitus with hyperglycemia; I10 Essential (primary) hypertension; E78.2 Mixed hyperlipidemia; Z79.84 Long term (current) use of oral hypoglycemic drugs; Z79.01 Long term (current) use of anticoagulants
CPT/HCPCS: A9270-GY; J2250; J3010; V2632

== ENCOUNTER 2018-11-17 06:29 | Day surgery (SDC) | payer BC ==
[~2018-11-17 06:29] MED LIST changes: -Cyclopentolate 1% OPTH.SOL* 2 ML BTL ONE; -Ketorolac 0.5% OPHTH (NF) 0.5 % 5 ML BTL ONE; -Lidocaine 1% MPF ** 5 ML VIAL ONE; -Midazolam* 1 MG/ML 2 ML VIAL (2 MG) ONE; -Neomycin/Polymy/Dex OPHTH.OIN* 3.5 GM ONE; -Phenylephrine OPHTH SOL 2.5%* 2 ML ONE; -Tetracaine 0.5% OPTH.SOL 4 ML* 1 DROP BTL ONE; -Tropicamide 1% OPTH.SOL* BTL ONE; -fentaNYL* 50 MCG/ML 2 ML VIAL (100 MCG VIAL) ONE
[2018-11-17] MEDS ORDERED: Midazolam* 1 MG/ML 2 ML VIAL (2 MG) ONE ×2 (07:16→07:37)
[2018-11-17 08:32] VITALS: BP 131/81
[2018-11-17] MEDS ORDERED: Phenylephrine OPHTH SOL 2.5%* 2 ML ONE (09:09)
[2018-11-17] MEDS ORDERED: Ketorolac 0.5% OPHTH (NF) 0.5 % 5 ML BTL ONE (09:09)
[2018-11-17] MEDS ORDERED: Tetracaine 0.5% OPTH.SOL 4 ML* 1 DROP BTL ONE (09:09)
[2018-11-17] MEDS ORDERED: Tropicamide 1% OPTH.SOL* BTL ONE (09:09)
[2018-11-17] MEDS ORDERED: Neomycin/Polymy/Dex OPHTH.OIN* 3.5 GM ONE (09:09)
[2018-11-17] MEDS ORDERED: Lidocaine 1% MPF ** 5 ML VIAL ONE (09:09)
[2018-11-17] MEDS ORDERED: Cyclopentolate 1% OPTH.SOL* 2 ML BTL ONE (09:09)
--- NOTE | 2018-11-17 15:18 | OP ---
DATE OF OPERATION: 11/17/18 [facility] DATE OF : 60 SURGEON: Charly Siddiqui MD PROFESSOR OF LITERATURE: None. ANESTHESIA: Topical with intravenous sedation. PRE-OP DIAGNOSIS: Cataract with astigmatism, left eye. POST-OP DIAGNOSIS: Cataract with astigmatism, left eye. OPERATIVE PROCEDURE: Phacoemulsification and cataract extraction with toric intraocular lens implant, left eye. COMPLICATIONS: None. BLOOD LOSS: None. DESCRIPTION OF PROCEDURE: The patient was brought to the operating room and received intravenous sedation. A drop of tetracaine was placed in his left eye. The patient was prepped and draped in the usual sterile fashion for ophthalmic surgery and attention was directed to the left eye where a speculum was placed. A paracentesis was created at the 5 o'clock position and 0.1 cc of 1% preservative- free lidocaine was injected to the anterior chamber followed by DisCoVisc. The eye was digitally stabilized while a 2.75-mm keratome was used to create a triplanar clear corneal incision at the 3 o'clock position. A continuous curvilinear capsulorrhexis was created using a cystotome and Utrata forceps. BSS on a cannula was used to hydrodissect the lens and the capsule. Phacoemulsification was performed in a ugntmb-[id number]-uwyqabi technique to create 4 fragments, which were removed. Residual cortical material was removed with irrigation and aspiration. The capsular bag was polished. Provisc was used to inflate the capsular bag. The intraocular pressure was measured, found to be appropriate to proceed. The surface of the eye was lubricated. The ORA device was employed. A small pre-existing corneal scar interfered with ORA device slightly , but many measurements seemed reliable and accurate. An [id number] 19 diopter lens was chosen. The lens was placed into the eye and rotated to the 152- degree axis. A Sinskey hook remained in the eye for the paracentesis to stabilize lens while irrigation and aspiration were performed to remove viscoelastic from the eye. The Sinskey hook was removed. BSS on a cannula was used to hydrate the corneal stroma and seal the wound. At the end of the case, the pupil was round. The lens was centered, stable, and axially aligned. The eye pressure appeared normal and the wound was watertight. The speculum was removed and topical Maxitrol ointment was placed on the surface of the eye. The eye was closed, patched, and shielded, and the patient was sent to the recovery room in stable condition with postoperative instructions and followup appointment given. [id number]/[facility] #: [id number] GEORGE
== END 2018-11-17 08:20 | disposition home or self-care (01) ==
LOC: OREAST 06:29
PROVIDERS: ATTEND Ophthalmology
DX: Z01.818 Encounter for other preprocedural examination (principal); H25.13 Age-related nuclear cataract, bilateral; H52.222 Regular astigmatism, left eye; E11.65 Type 2 diabetes mellitus with hyperglycemia; I10 Essential (primary) hypertension; E78.2 Mixed hyperlipidemia
CPT/HCPCS: A9270-GY; J2250; V2787

== ENCOUNTER 2019-01-21 07:00 | Inpatient (IN) | payer BC ==
--- NOTE | 2019-01-08 13:38 | HP ---
HISTORY AND PHYSICAL: DATE OF ADMISSION/SURGERY: 01/21/19 DATE OF OFFICE VISIT: 01/08/19 SURGEON: Kianna Fox MD * (DICTATED BY ALEXIS ROSADO) PROCEDURE: Left total knee arthroplasty. CHIEF COMPLAINT: Left knee pain. HISTORY OF PRESENT ILLNESS: Mr. Resendez is a 59-year-old gentleman with continued complaints of left knee pain. He has failed conservative treatment and elected to proceed with a left total knee arthroplasty. PAST MEDICAL HISTORY: Hypertension and diabetes. PAST SURGICAL HISTORY: Right total knee arthroplasty, ORIF of the left ankle, low back surgery, right great toe surgery, and bilateral knee arthroscopies. CURRENT MEDICATIONS: 1. Irbesartan 75 mg a day. 2. Pravastatin sodium 5 mg q.h.s. 3. Januvia 100 mg daily. 4. Metformin 1000 mg twice a day. 5. Ibuprofen 800 mg 3 times a day as needed. ALLERGIES: No known drug allergies. FAMILY HISTORY: Diabetes and coronary artery disease. SOCIAL HISTORY: He is a 59-year-old gentleman, lives with his . He does not smoke or use drugs. Uses occasional alcohol. REVIEW OF SYSTEMS: A complete 14-point review of systems was reviewed with the patient. It was positive for diabetes and history of a seizure. He denies history of DVT, PE, hepatitis, HIV, or anesthesia problems. PHYSICAL EXAMINATION GENERAL: He is well developed, well nourished, in no acute distress. VITAL SIGNS: He stands 5 feet 9 inches tall, weighs 246 pounds. His blood pressure is 136/90, heart rate is 82. HEENT: Normocephalic, atraumatic. NECK: Supple. No palpable lymph nodes. PULMONARY: The lungs are clear to auscultation bilaterally. CARDIO: Regular rate and rhythm. Strong S1, S2. ABDOMEN: Soft, nontender, nondistended. NEUROLOGICAL: He is alert and oriented x3. MUSCULOSKELETAL: Left lower extremity: The skin is intact. There are no open wounds or abrasions. There is a moderate effusion of the left knee joint, some tenderness along the medial and lateral joint line. Range of motion is 10 to 125 degrees of flexion with patellofemoral crepitus. He has a 2+ dorsalis pedis pulse. He is able to dorsiflex and plantarflex and has intact sensation. ASSESSMENT AND PLAN: Mr. Resendez is a 59-year-old gentleman with end-stage osteoarthritis of the left knee. He has failed conservative treatment and elected to proceed with a left total knee arthroplasty. The surgery is scheduled for 01/21/[address] Fox discussed the risks and benefits of the surgery at today's visit and all of his questions were answered. He will follow up with Dr. Fox 2 weeks after the surgery. ALEXIS ROSADO [id number]/[facility] #: [id number] [facility] CENTERLori
[~2019-01-21 07:00] MED LIST changes: +Acetaminophen TAB* 325 MG PO ONE; +Dexamethasone TAB* 4 MG PO ONE; +DiMENhydriNATE IV* 50 MG/ML VIAL IV PUSH PRN; +Famotidine IV* 10 MG/ML 2 ML (20 mg) IV ONE; +Gabapentin CAP(*) 300 MG PO ONE; +Lactated Ringers 1000 ML Bag* 1,000 ML IV SCH; +Naloxone* 0.4 MG/ML 1 ML VIAL IV PRN; +Ondansetron ODT TAB* 4 MG PO ONE; +PROCHLORPERAZINE INJ 5 MG/ML 2 ML VIAL IV PRN; +Scopolamine 1.5 mg* PATCH TRANSDERM PRN; +Tranexamic Acid 1,000 MG in NS 0.9% 50 ML* (outpatient use) IV SCH; +celeCOXIB CAP* 200 MG PO ONE; +oxyCODONE TAB* 5 MG TAB PO PRN
--- OUTSIDE RECORDS SUMMARY | 2019-01-21 07:03 | XMS REPORT | Continuity of Care Document ---
:1960 External Reference #:[id number] Author Name Eldon Barron, OD Address [address] [place] [address] [place] [address] Problems Active Problems Provider Date Disorder of eye with type 2 diabetes mellitus Eldon White O.D. Onset: Disorder of cornea Eldon White O.D. Onset: 06/04/2013 Myopia Eldon White O.D. Onset: 06/04/2013 Presbyopia Eldon White O.D. Onset: 06/04/2013 Nonproliferative diabetic retinopathy Eldon White O.D. Onset: 12/06/2013 Traumatic cataract Eldon White O.D. Onset: 06/06/2014 Regular astigmatism Eldon White O.D. Onset: 06/17/2014 Type 2 diabetes mellitus Eldon White O.D. Onset: 06/29/2015 Localized traumatic opacity Eldon White O.D. Onset: 06/29/2015 Corneal opacity Eldon White O.D. Onset: 06/29/2015 Social History Type Date Description Comments Sex Unknown ETOH Use Occasionally consumes alcohol Tobacco Use Start: Unknown Patient has never smoked Smoking Status Reviewed: 11/23/18 Patient has never smoked Allergies, Adverse Reactions, Alerts Description No Known Drug Allergies Medications Active Medications SIG Qnty Indications Ordering Provider Date Ketorolac Tromethamine 1 drops left eye 10ml Charly Siddiqui, 10/23/2018 twice a day M.D. 0.5% Solution Pred Forte one drop four 20ml Charly Siddiqui, 10/23/2018 1% Suspension times a day left M.D. eye x 1 week, then taper as directed Pravastatin Sodium Unknown Tablets Ibuprofen Unknown 800mg Tablets Glipizide ER Hilcoltorf POST CLOSING SPECIALIST, Arlen 5mg Tablets ER 24HR Metformin HCL ER (Osm) Varinder COLMENARES, Tony 1000mg Tablets ER 24HR Irbesartan Varinder COLMENARES, Tony 75mg Tablets Janjudy Reeder MD, Tony 100mg Tablets Warfarin Sodium Unknown 2mg Tablets History Medications Vigamox 1 drop left eye 6ml Charly Siddiqui M.D. 10/23/2018 - 0.5% Solution four times a day, 11/24/2018 start drops morning of surgery Immunizations Description No Information Available Vital Signs Date Vital Result Comment 11/24/2018 9:12am Intraocular Pressure Right Eye 16 mmHg Intraocular Pressure Left Eye 16 mmHg 11/18/2018 9:00am Intraocular Pressure Right Eye 17 mmHg Intraocular Pressure Left Eye 16 mmHg Results Test Date Facility Test Result H/L Range Note Laboratory test 11/17/2018 [facility] Point of Care 191 mg/dL High 70-100 [address] [place], [place] [id number] [phone] Laboratory test 11/10/2018 [facility] Point of Care 195 mg/dL High 70-100 [address] [place], [place] [address] [phone] 1 Retail Pricing Coordinator: [id number] Retail Pricing Coordinator: [id number] Procedures Date Code Description Status 11/10/2018 93426 Extracapsular Cataract Extraction W/Intraocular Lens Completed 10/12/2018 99096 Ophthalmic Biometry By Partial Coherence Interferometry Completed W/Intra 09/15/2018 68652 Eye Exam Est Intermediate Completed Medical Devices Description No Information Available Encounters Type Date Location Provider Dx Diagnosis Office Visit 10/12/2018 Main Office Charly Siddiqui, H25.813 Combined forms of 10:15a M.D. age-related cataract, bilateral Assessments Date Code Description Provider 11/24/2018 Z96.1 Presence of intraocular lens Eldon Barron, OD 11/18/2018 Z48.89 Encounter for other specified surgical Charly Siddiqui M.D. aftercare 11/11/2018 Z48.89 Encounter for other specified surgical Charly Siddiqui M.D. aftercare 11/10/2018 H25.11 Age-related nuclear cataract, right eye Charly Siddiqui M.D. 10/12/2018 H25.813 Combined forms of age-related cataract, Charly Siddiqui M.D. bilateral 09/15/2018 E11.9 Type 2 diabetes mellitus without Eldon Barron, OD complications 09/15/2018 H25.813 Combined forms of age-related cataract, Eldon Barron, OD bilateral 09/15/2018 H17.12 Central corneal opacity, left eye Eldon Barron, OD 09/15/2018 H52.4 Presbyopia Eldon Barron, OD Plan of Treatment Future Appointment(s):12/25/2018 9:15 am - Eldon Barron, OD at [facility]/2018 - Eldon Barron, ODZ96.1 Presence of intraocular lensFollow up:as scheduled 1 month post op, sooner PRN Functional Status Description No Information Available Mental Status Description No Information Available Referrals Description No Information Available
--- OUTSIDE RECORDS SUMMARY | 2019-01-21 07:03 | XMS REPORT | Continuity of Care Document ---
:1960 External Reference #:[id number] Author Name Eldon Barron, OD Address [address] [place] [address] [place] [address] Problems Active Problems Provider Date Disorder of [...] Patient has never smoked Smoking Status Reviewed: 12/24/18 Patient has never smoked Allergies, Adverse Reactions, Alerts Description No Known Drug Allergies Medications Active Medications SIG Qnty Indications Ordering Provider Date Pravastatin Sodium Unknown Tablets Ibuprofen 800mg Unknown Tablets Glipizide ER Trista FLORAL DESIGNER SALESPERSON, Arlen 5mg Tablets ER 24HR Metformin HCL ER (Osm) Varinder COLMENARES, Tony 1000mg Tablets ER 24HR Irbesartan 75mg Varinder COLMENARES, Tony Tablets Januvia 100mg Tony Reeder MD Tablets Warfarin Sodium Unknown 2mg Tablets History Medications Vigamox 1 drop left eye 6ml Charly Siddiqui, 10/23/2018 - 0.5% Solution four times a day, M.D. 11/24/2018 start drops morning of surgery Ketorolac Tromethamine 1 drops left eye 10ml Charly Siddiqui, 10/23/2018 - twice a day M.D. 12/25/2018 0.5% Solution Pred Forte one drop four 20ml Charly Siddiqui, 10/23/2018 - 1% Suspension times a day left M.D. 12/25/2018 eye x 1 week, then taper as directed Immunizations Description No Information Available Vital Signs Date Vital Result Comment 11/24/2018 9:12am Intraocular Pressure Right Eye 16 mmHg Intraocular Pressure Left Eye 16 mmHg 11/18/2018 9:00am Intraocular Pressure Right Eye 17 mmHg Intraocular Pressure Left Eye 16 mmHg Results Test Acquired Date Facility Test Result H/L Range Note Laboratory test 11/17/2018 [facility] Point of Care 191 mg/dL High 70-100 [address] [place] [address] [phone] Laboratory test 11/10/2018 [facility] Point of Care 195 mg/dL High 70-100 [address] [place] [address] [phone] Electrical Products Sales Engineer: [id number] Electrical Products Sales Engineer: [id number] Procedures Date Code Description Status 11/17/2018 68020 Extracapsular Cataract Extraction W/Intraocular Lens Completed 11/10/2018 06750 Extracapsular Cataract Extraction W/Intraocular Lens Completed 10/12/2018 54479 Ophthalmic Biometry By Partial Coherence Interferometry Completed W/Intra 09/15/2018 82019 Eye Exam Est Intermediate Completed Medical Devices Description No Information Available Encounters Type Date Location Provider Dx Diagnosis Office Visit 10/12/2018 Main Office Charly Siddiqui, H25.813 Combined forms of 10:15a M.D. age-related cataract, bilateral Assessments Date Code Description Provider 12/25/2018 Z96.1 Presence of intraocular lens Eldon Barron, OD 11/24/2018 Z96.1 Presence of intraocular lens Eldon Barron, OD 11/18/2018 Z48.89 Encounter for other specified surgical Charly Siddiqui M.D. aftercare 11/17/2018 H25.12 Age-related nuclear cataract, left eye Charly Siddiqui M.D. 11/11/2018 Z48.89 Encounter for other specified surgical [...] Presbyopia Eldon Barron, OD Plan of Treatment 12/25/2018 - Eldon Barron, ODZ96.1 Presence of intraocular lensFollow up:2019 full, sooner PRN Functional Status Description No Information Available Mental Status Description No Information Available Referrals Description No Information Available
--- OUTSIDE RECORDS SUMMARY | 2019-01-21 07:03 | XMS REPORT | Continuity of Care Document ---
:1960 External Reference #:[id number] Author Name Kianna Fox M.D. (transmitted by agent of provider Samuel Colon) Address [address] [place] [address] Care Team Providers Name Role Phone Tony Reeder MD - Family Care Team Information Senior Online Marketing Manager [phone] Medicine Problems Active Problems Provider Date Sprain of medial collateral ligament of knee Kianna Fox M.D. Onset: 2018 Current tear of medial cartilage AND/OR Anurag Oconnor MD Onset: 03/20/2018 meniscus of knee Knee joint effusion Anurag Oconnor MD Onset: 03/20/2018 Arthroplasty of knee Kianna Fox M.D. Onset: 04/01/2016 Localized, primary osteoarthritis Kianna Fox M.D. Onset: 05/03/2015 Sprain of other specified parts of right knee, Eldon Reeves M.D. Onset: 09/2015 subsequent encounter Social History Type Date Description Comments Sex Unknown Tobacco Use Start: Unknown Patient has never smoked Smoking Status Reviewed: 01/08/19 Patient has never smoked Allergies, Adverse Reactions, Alerts Description No Known Drug Allergies Medications Active Medications SIG Qnty Indications Ordering Provider Date Tramadol HCL 1 tab every 8 36tabs Kianna Fox, 01/08/2019 50mg hours as needed M.D. Tablets for pain Irbesartan take 1 tablet Unknown 75mg Tablets every morning Pravastatin Sodium 1 tablet by mouth Unknown 5mg once daily at Tablets bedtime Januvia 1 by mouth every Unknown 100mg Tablets day Metformin HCL 1 by mouth twice Unknown 1000mg a day Tablets Ibuprofen Take 1 Tablet By 90tabs Kianna Fox, 800mg Tablets Mouth Three Times M.D. Daily as Needed For Pain - Maximum Daily Dose Of 3 Per Day Medications Administered in Office Medication SIG Qnty Indications Ordering Provider Date Depomedrol 40MG SILVIO Collazo 10/02/2018 Injection Triamcinolone (Kenalog) Ciara Edmonds PA-C 03/20/2018 Injection Depomedrol 40MG Kianna Fox M.D. 02/05/2016 Injection Depomedrol 40MG Kianna Fox M.D. 08/28/2015 Injection Triamcinolone (Kenalog) Eldon Reeves M.D. 04/25/2015 Injection Triamcinolone (Kenalog) Eldon Reeves M.D. 04/25/2015 Injection Immunizations Description No Information Available Vital Signs Date Vital Result Comment 01/08/2019 9:27am Height 69 inches 5'9" Weight 246.25 lb Heart Rate 82 /min BP Systolic 136 mmHg BP Diastolic 90 mmHg Respiratory Rate 16 /min Pain Level 0 BMI (Body Mass Index) 36.4 kg/m2 10/23/2018 1:42pm Height 69 inches 5'9" Weight 235.00 lb stated Heart Rate 76 /min BP Systolic 138 mmHg BP Diastolic 76 mmHg Respiratory Rate 12 /min Pain Level 0 BMI (Body Mass Index) 34.7 kg/m2 Results Description No Information Available Procedures Date Code Description Status 10/02/2018 97336 Inject/Drain Joint/Bursa Major W/O US Completed Medical Devices Description No Information Available Encounters Type Date Location Provider Dx Diagnosis Office Visit 10/23/2018 [facility] Kianna Fox, M25.562 Pain in left knee 2:00p at [place] M17.12 Unilateral primary osteoarthritis, left knee M25.462 Effusion, left knee Office Visit 10/02/2018 2:45p [facility], M25.562 Pain in at [facility] left knee M17.12 Unilateral primary osteoarthritis, left knee Assessments Date Code Description Provider 01/08/2019 M17.12 Unilateral primary osteoarthritis, left knee Kianna Fox M.D. 01/08/2019 M25.562 Pain in left knee Kianna Fox M.D. 10/23/2018 M25.562 Pain in left knee Kianna Fox M.D. 10/23/2018 M17.12 Unilateral primary osteoarthritis, left knee Kianna Fox M.D. 10/23/2018 M25.462 Effusion, left knee Kianna Fox M.D. 10/02/2018 M25.562 Pain in left knee Ashley Michaeljoy, SVITLANA-C 10/02/2018 M17.12 Unilateral primary osteoarthritis, left knee Ashley Michaeljoy , SVITLANA-C 07/15/2018 M25.562 Pain in left knee Kianna Fox M.D. 07/15/2018 M17.12 Unilateral primary osteoarthritis, left knee Kianna Fox M.D. 07/15/2018 S83.242D Other tear of medial meniscus, current Kianna Fox M.D. injury, left knee, chavez Plan of Treatment Future Appointment(s):02/03/2019 9:00 am - Kianna Fox M.D. at [facility] at Ikvbsk8801/21/2019 10:30 am - Kianna Fox M.D. at [facility] at Muhaqh2701/08/2019 - Kianna Fox M.D.M17.12 Unilateral primary osteoarthritis, left kneeFollow up:Follow up: 2 weeks after iqzhzlgA59.562 Pain in left knee Functional Status Description No Information Available Mental Status Description No Information Available Referrals Description No Information Available
[2019-01-21] MEDS ORDERED: Ondansetron ODT TAB* 4 MG ONE (07:47)
[2019-01-21] MEDS ORDERED: ceFAZolin 2 GM in NS PREMIX(*) 2 GM/100 ML BAG IVPB ONE (07:47)
[2019-01-21] MEDS ORDERED: Famotidine IV* 10 MG/ML 2 ML (20 mg) ONE (07:47)
[2019-01-21] MEDS ORDERED: Gabapentin CAP(*) 300 MG ONE (07:47)
[2019-01-21] MEDS ORDERED: Dexamethasone TAB* 4 MG ONE (07:47)
[2019-01-21] MEDS ORDERED: celeCOXIB CAP* 200 MG ONE (07:47)
[2019-01-21] MEDS ORDERED: Acetaminophen TAB* 325 MG ONE (07:47)
[2019-01-21] MEDS ORDERED: Midazolam* 1 MG/ML 5 ML VIAL (5 MG) ONE (08:07)
[2019-01-21] MEDS ORDERED: fentaNYL* 50 MCG/ML 2 ML VIAL (100 MCG VIAL) ONE ×3 (08:07→13:02)
[2019-01-21] MEDS ORDERED: KETAMINE HCL* 50 MG/ML 10 ML VIAL ONE (08:07)
[2019-01-21] MEDS ORDERED: Buffered Lidocaine 1% SYRIN* 1 ML/SYRINGE INTRADERM ONE (08:20)
[2019-01-21] MEDS ORDERED: HYDROmorphone INJ1* 1 MG/ML SYRINGE ONE ×2 (10:25→13:13)
[2019-01-21] MEDS ORDERED: Lidocaine 2% PF * 5 ML VIAL ONE (10:26)
[2019-01-21] MEDS ORDERED: Propofol* 10 MG/ML 20 ML BTL ONE (10:26)
[2019-01-21] MEDS ORDERED: Phenylephrine 40 MCG/ML SYRINGE ONE (10:26)
[2019-01-21] MEDS ORDERED: ROPIVACAINE 5 MG/ML 30 ML BTL (0.5%) ONE (10:31)
[2019-01-21] MEDS ORDERED: Metoprolol Tartrate IV* 1 MG/ML 5 ML VIAL ONE (12:30)
[2019-01-21] MEDS ORDERED: hydrALAZINE IV* 20 MG/ML VIAL ONE (12:31)
[2019-01-21] MEDS ORDERED: Polyethylene Glycol 3350* 17 GM PACKET PO PRN (12:44)
[2019-01-21] MEDS ORDERED: Ondansetron INJ* 2 MG/ML VIAL IV PRN (12:44)
[2019-01-21] MEDS ORDERED: Ondansetron ODT TAB* 4 MG PO PRN (12:44)
[2019-01-21] MEDS ORDERED: traMADol TAB* 50 MG PO PRN (12:44)
[2019-01-21] MEDS ORDERED: diPHENhydraMINE PO* 25 MG PO PRN (12:44)
[2019-01-21] MEDS ORDERED: Ondansetron TAB* 4 MG PO PRN (12:44)
[2019-01-21] MEDS ORDERED: Magnesium Hydroxide LIQ* 30 ML UDC PO PRN (12:44)
[2019-01-21] MEDS ORDERED: diPHENhydraMINE IV* 50 MG/ML 1 ml VIAL (BENADRYL) IV PRN (12:44)
[2019-01-21] MEDS: fentaNYL* 50 MCG/ML 2 ML VIAL (100 MCG VIAL) IV PRN ×5 (12:47→13:04)
[2019-01-21] MEDS: HYDROmorphone INJ1* 1 MG/ML SYRINGE IV PRN ×5 (13:15→13:41)
[2019-01-21] MEDS: Lactated Ringers 1000 ML Bag* 1,000 ML IV SCH (14:36)
--- NOTE | 2019-01-21 15:45 | PN ---
Progress Note - Progress Note Date of Service: 01/21/19 Note: Pt seen and examined at bedside. He feels well with well controlled L knee pain. Denies CP, SOB, dizziness, nausea. DF/PF intact, DP2+, sensation intact to light touch distally.
[2019-01-21] MEDS: Acetaminophen TAB* 325 MG PO SCH (16:12)
[2019-01-21] MEDS: oxyCODONE/Acetamin 5/325 MG* TAB PO PRN ×2 (16:13→21:51)
[2019-01-21] MEDS ORDERED: Senna TAB 8.6 mg* TAB PO PRN (16:50)
[2019-01-21] MEDS: ceFAZolin 1 GM ADVAN(*) 1 GM in NS 0.9% 50 ML* 50 ML IVPB SCH (18:13)
[2019-01-21] MEDS: CMCS: SitaGLIPtin (NF) 100 MG TAB PO SCH (18:13)
[2019-01-21] MEDS: oxyCODONE TAB* 5 MG TAB PO PRN (18:19)
--- NOTE | 2019-01-21 18:34 | CONS ---
CONSULTATION REPORT: DATE OF CONSULT: 01/21/19 PHYSICIAN REQUESTING CONSULT: Kianna Fox MD. PRIMARY CARE PHYSICIAN: Tony Reeder MD. REASON FOR CONSULT: Diabetes and hypertension. HISTORY OF PRESENT ILLNESS: Mr. Resendez is a 59-year-old man with diabetes, hypertension, and end-stage osteoarthritis of the left knee, who has failed conservative treatment. He elected to proceed with a left total knee arthroplasty by Dr. Fox on 01/21/19 , he is now status post procedure, which he tolerated well. PAST MEDICAL HISTORY: 1. Diabetes. 2. Hypertension. 3. Right knee osteoarthritis, status post right total knee arthroplasty in 2013. 4. Chronic lower back pain, status post surgical procedure. HOME MEDICATIONS: 1. Metformin 1000 mg twice a day. 2. Sitagliptin 100 mg daily. 3. Pravastatin 20 mg daily. 4. Candesartan 16 mg daily. ALLERGIES: No known drug allergies. FAMILY HISTORY: Father from stroke at 62. Mother is alive and has diabetes. SOCIAL HISTORY: The patient lives with his , Lidia who is also his healthcare proxy. 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 He denies tobacco use or other drugs. He reports social drinking only on the weekends. PHYSICAL EXAM: In general, he is a well-appearing man in no acute distress. He was alert and interactive with interview and at bedside, sitting in chair. Vital Signs: Afebrile, heart rate 80, blood pressure 142/75, respiratory rate 16, oxygen saturation 97% on room air. HEENT: With moist mucous membranes. OP clear. Neck: Supple. No JVD. Lungs: Clear to auscultation bilaterally. Heart: Regular rate and rhythm. No murmurs, gallops , or rubs. Abdomen: Soft, nontender, nondistended. No organomegaly. Extremities: Warm and well perfused, no edema. Right knee with well-healed surgical scars, left knee covered in postsurgical device. DIAGNOSTIC STUDIES/LAB DATA: CBC last month unremarkable. BMP last month with creatinine 0.76 AST/ALT 48/69, which appears chronic change. The patient reports recent hemoglobin A1c of 6.9%. Knee x-ray left, status post total left knee replacement surgery. ASSESSMENT AND PLAN: Mr. Resendez is a 59-year-old man with diabetes, hypertension, and severe left knee osteoarthritis, now status post total knee replacement. He tolerated the procedure well, and Internal Medicine is consulted postop for help co- managing chronic medical illnesses. 1. Diabetes. The patient can continue his home metformin and sitagliptin doses. He should be on a consistent carbohydrate diet. The patient takes pravastatin at home, which is not formulary, but can convert to atorvastatin here. 2. Hypertension. Can continue ARB. Candesartan is not formulary, but this may be changed to valsartan. 3. Status post left total knee replacement. Pain control and DVT prophylaxis as per orthopedic surgery team. The patient should take bowel regimen while on opioids. I will order senna p.r.n. in addition to his milk of magnesia. Thank you for allowing me to participate in the care of your patient. I will follow as needed. TIME SPENT: Approximately 30 minutes was spent on consultation of this patient , more than half of which was spent at bedside for interview and exam. [id number]/[facility] #: [id number] GEORGE
--- NOTE | 2019-01-21 20:53 | OP ---
Operative Report - Blank - Operative Report Date of Operation: 01/21/19 Note: JORGE MCCORD 1960 Date of Surgery: 01/21/19 Kianna Fox MD Rand Butter: Chris ESPINOZA did help throughout the procedure with preparation of the knee, wound retraction, manipulation of the knee, and wound closure. Anesthesiologist: Taj Dumont Anesthesia Type: Spinal Preoperative Diagnosis: Left severe degenerative osteoarthritis of the knee Postoperative Diagnosis: As above Procedure Performed: Left Total Knee Arthroplasty Tourniquet time: 70 minutes Complications: None Specimen: Bone and cartilage from the left knee joint sent to pathology. Hardware Used: Cemented Marion and Nephew total knee hardware was used - For the femur a size 7 left oxinium legion posterior stabilized femoral component, for the tibia a size 6 left erica II tibial baseplate, for the insert a size 9mm 5 -6 posterior stabilized articular polyethylene insert, and for the patella a size 35 3-peg all poly patella. The [employer] Robotic Navigation system was used. Brief History/Indication: JORGE MCCORD was known in clinic and had a history of severe left knee pain and swelling. He failed conservative treatment with anti-inflammatories, pain pills, intra-articular injections and physical therapy. He elected to undergo left total knee arthroplasty due to continued pain and decreased quality of life. Radiographs showed severe end stage osteoarthritis of the knee with bone on bone contact. Informed consent was obtained from the patient. He understood the risks of surgery included but were not limited to: bleeding, infection, damage to nearby structures, intraoperative fracture, nerve palsy, failure of the hardware, early loosening, knee stiffness or loss of motion, anesthesia complications, stroke, heart attack , blood clot and . He wished to proceed. He also accepted the pin site risks associated with use of the Navio system. Intra-Operative Findings: Intraoperatively the patient was noted to have severe loss of cartilage in all 3 compartments of the knee. Description of the Procedure: JORGE MCCORD was identified in the preanesthesia unit. His left knee was marked as the correct operative side. Informed consent was signed and placed in the chart. The patient was taken to the operating room and placed under anesthesia without complication. A hilton catheter was placed. A tourniquet was placed on the left thigh. The left lower extremity was prepped and draped in the usual sterile fashion. Preoperative time-out was made to correctly identify the patient, side and site. Appropriate intraoperative antibiotics were given within one hour of incision. Tourniquet was inflated. A midline incision was made and carried sharply down to the extensor mechanism. A new 10 blade was used to make a standard medial parapatellar arthrotomy. The patella was subluxed laterally. Electrocautery was used to dissect soft tissue off the superomedial tibia to the midsagittal plane. The knee was flexed up. The anterior horn of the lateral meniscus and the ACL/PCL were sharply incised. The two checkpoint screws and four pins were placed in the femur and tibia. The tracking arrays were placed and the [employer] robotic navigation system was used to map the patient's anatomy. The bone cuts and hardware sizes/placement were chosen using the [employer]lob[employer] system. The [employer] robotic rema was used to make the distal femoral cut. The distal femur and the distal femur was sized to a size 7. The size 7 multi- cutting jig was pinned on the distal femur. The oscillating saw was used to make the appropriate 4 chamfer cuts. Next the PCL was completely released. The extramedullary tibial cutting guide was pinned on the proximal tibia using the Navio angular guide. The oscillating saw was used to make the proximal tibial cut perpendicular to the mechanical axis of the tibia. The bone was carefully removed. The knee was brought out into full extension. The spacer block was placed and had excellent fit with the knee in full extension. The medial and lateral ligaments were well balanced. The flexion and extension gaps were well balanced. The knee was flexed up. Lamina millinery worker was placed both medially and laterally. Any remaining meniscus was removed with electrocautery. Curved osteotome was used to remove any posterior osteophytes. The tibial tray and drop kay were placed and confirmed a satisfactory tibial cut. The size 7 left femoral trial was impacted onto the distal femur. This trial had excellent fit and stability. The box for the posterior stabilized implant was prepared using a box cut osteotome and a reamer. Next a tibial tray trial and 9 mm insert trial was placed. The knee was taken through a range of motion and had full extension to 130 degrees of flexion. Patellofemoral tracking was satisfactory. The final Navio checkpoints were entered and the screws/pins were removed. The patella was inverted and sized to a size 35. Three peg holes were drilled through the size 35 drill guide. The trial patella was placed and the knee was taken through a range of motion. There was satisfactory patellofemoral tracking. All trials were removed. The tibia was subluxed anteriorly and sized to a size 6. The proximal tibial was prepared with a size 6 keel punch. All bony cut surfaces were irrigated with sterile saline and dried. Final implants were cemented into place starting with the tibia, followed by the femur, and last the patella. A 9 mm insert trial was placed and the knee was brought into full extension. Tourniquet was turned down and the knee was copiously irrigated with sterile saline. Electrocautery was used to obtain meticulous hemostasis. Once the cement had fully cured, the insert trial was removed. Any excess cement was removed from around the hardware and capsule. Final insert chosen was a 9 mm posterior stabilized Erica II articular insert size 5-6. Stability of the insert was checked and noted to be stable. The extensor mechanism was closed using number 1 vicryls. The rest of the incision was closed in a layered fashion using 0 and 2-0 vicryls. The skin was closed using 3-0 nylon suture. Sterile xeroform, 4x4s and webril were used to cover the incision. Tyrone wrap and cold pack were used to cover the dressings. The patients anesthesia was reversed without difficulty. He was taken to the PACU in stable condition. Intended weight-bearing will be as tolerated.
[2019-01-21] MEDS ORDERED: Docusate CAP* 100 MG PO SCH (21:00)
[2019-01-21] MEDS: metFORMIN* 500 MG TAB PO SCH (21:50)
[2019-01-21] MEDS: Magnesium Hydroxide LIQ* 30 ML UDC PO SCH (21:50)
[2019-01-22] MEDS: Acetaminophen TAB* 325 MG PO SCH ×3 (00:12→15:59)
[2019-01-22] MEDS: Cyclobenzaprine TAB* 10 MG PO PRN ×2 (00:17→23:34)
[2019-01-22] MEDS: oxyCODONE TAB* 5 MG TAB PO PRN ×5 (00:18→23:36)
[2019-01-22] MEDS: Lactated Ringers 1000 ML Bag* 1,000 ML IV SCH ×2 (00:58→19:31)
[2019-01-22] MEDS: ceFAZolin 1 GM ADVAN(*) 1 GM in NS 0.9% 50 ML* 50 ML IVPB SCH ×2 (02:18→09:22)
[2019-01-22] MEDS: oxyCODONE/Acetamin 5/325 MG* TAB PO PRN ×4 (05:50→20:04)
[2019-01-22 06:36] LABS: Hematocrit 37 % (42-52); Hemoglobin 12.7 g/dL (14.0-18.0); Mean Platelet Volume 7.9 fL (7.4-10.4); Platelet Count 114 10^3/uL (150-450)
[2019-01-22 06:52] LABS: BUN/Creatinine Ratio 13.3 (8-20); Calcium 8.6 mg/dL (8.6-10.3); EGFR Non-African American 106.6 (>60)
--- NOTE | 2019-01-22 08:16 | PN ---
Progress Note - Progress Note Date of Service: 01/22/19 SOAP: Subjective: Pt. is alert, reports moderate pain left knee and swollen thigh. Objective: Vital Signs: Temp Pulse Resp BP Pulse Ox 98.2 F 95 16 115/69 97 01/22/19 03:00 01/22/19 03:00 01/22/19 07:58 01/22/19 03:00 01/22/19 03:00 Laboratory Results - last 24 hr 01/22/19 01/22/19 06:19 06:19 Hgb 12.7 L Hct 37 L Plt Count 114 L MPV 7.9 Sodium 132 L Potassium 4.0 Chloride 102 Carbon Dioxide 27 Anion Gap 3 BUN 10 Creatinine 0.75 Est GFR ( Amer) 129.0 Est GFR (Non-Af Amer) 106.6 BUN/Creatinine Ratio 13.3 Glucose 211 H Calcium 8.6 LLE - dressing c/d/i. distally nvi. +df/pf, full sens lt, 2+ dp pulse. 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
[2019-01-22] MEDS: metFORMIN* 500 MG TAB PO SCH ×2 (09:20→20:04)
[2019-01-22] MEDS: Valsartan TAB* 80 MG PO SCH (09:20)
[2019-01-22] MEDS: Apixaban* 2.5 MG TAB PO SCH ×2 (09:20→20:04)
[2019-01-22] MEDS: Vitamin THERAPEUTIC TAB PO SCH (09:21)
[2019-01-22] MEDS: Atorvastatin* 10 MG TAB PO SCH (09:21)
[2019-01-22] MEDS: Magnesium Hydroxide LIQ* 30 ML UDC PO SCH ×2 (09:22→20:06)
[2019-01-22] MEDS: Morphine INJ* 2 MG/ML 1 ML SYRINGE (TWO MG - NEW SYRINGE VERSION) IV PRN ×2 (11:31→23:59)
[2019-01-22] MEDS ORDERED: NS 0.9% 1000 ML** 1,000 ML IV ONE (17:30)
[2019-01-22] MEDS: CMCS: SitaGLIPtin (NF) 100 MG TAB PO SCH (18:05)
[2019-01-22 19:38] LABS: Hematocrit 36 % (42-52); Hemoglobin 12.3 g/dL (14.0-18.0); Mean Corpuscular HGB Conc 34 g/dL (31-36); Mean Corpuscular Hemoglobin 30 pg (27-31); Mean Corpuscular Volume 89 fL (80-94); Mean Platelet Volume 7.8 fL (7.4-10.4); Platelet Count 122 10^3/uL (150-450); Red Blood Count 4.07 10^6 /uL (4.18-5.48); Red Cell Distribution Width 14 % (10-15); White Blood Count 10.8 10^3/uL (3.5-10.8)
[2019-01-22 19:53] LABS: BUN/Creatinine Ratio 17.6 (8-20); Calcium 8.3 mg/dL (8.6-10.3); EGFR African American 111.6 (>60); EGFR Non-African American 92.3 (>60); Potassium 4.3 mmol/L (3.5-5.0)
[2019-01-22 20:28] LABS: ABS Basophils 0.1 10^3/ul (0-0.2); ABS Lymphocytes 1.4 10^3/ul (1.0-4.8); ABS Monocytes 1.6 10^3/ul (0-0.8); ABS Neutrophils 7.7 10^3/ul (1.5-7.7); Eosinophil % 0.1 %; Lymphocyte % 13.2 %
[2019-01-22] MEDS ORDERED: NS 0.9% 1000 ML** 2,000 ML IV ONE (21:36)
[2019-01-23] MEDS: Acetaminophen TAB* 325 MG PO SCH ×2 (01:13→09:09)
[2019-01-23] MEDS ORDERED: Metoprolol Tartrate IV* 1 MG/ML 5 ML VIAL IV PRN (04:12)
[2019-01-23] MEDS: oxyCODONE/Acetamin 5/325 MG* TAB PO PRN ×3 (04:27→13:26)
[2019-01-23 06:22] LABS: Hematocrit 34 % (42-52); Hemoglobin 11.6 g/dL (14.0-18.0); Mean Platelet Volume 7.9 fL (7.4-10.4); Platelet Count 111 10^3/uL (150-450)
[2019-01-23] MEDS: Apixaban* 2.5 MG TAB PO SCH (09:18)
[2019-01-23] MEDS: Vitamin THERAPEUTIC TAB PO SCH (09:19)
[2019-01-23] MEDS: Valsartan TAB* 80 MG PO SCH (09:19)
[2019-01-23] MEDS: Atorvastatin* 10 MG TAB PO SCH (09:19)
[2019-01-23] MEDS: metFORMIN* 500 MG TAB PO SCH (09:19)
[2019-01-23] MEDS: Magnesium Hydroxide LIQ* 30 ML UDC PO SCH (09:20)
[2019-01-23] MEDS ORDERED: Iodixanol* (CONTRAST) 320 MG/ML 100 ML SDV IV ONE (09:51)
[2019-01-23 09:52] LABS: TSH (Thyroid Stimulating Horm) 1.23 mcIU/mL (0.34-5.60)
--- NOTE | 2019-01-23 10:44 | CONSULT ---
Subjective Date of Service: 01/23/19 Interval History: Pt was ready for discharge yesterday but became tachycardic by evening. Denies all symptoms, including SOB, fevers, chills, chest pain, worsening knee pain, dysuria, or thirst. States he feels well. Was using the incentive spirometer a lot. Was not on a beta-louis at home. EKG with sinus tach. Q in III unchanged from 2006. Review of Systems - Measurements Intake and Output: Intake and Output Last 24 Hours 01/21/19 01/22/19 01/23/19 01/24/19 06:59 06:59 06:59 06:59 Intake Total 4955 4353 400 Output Total 4850 2455 Balance 105 1898 400 Weight 245 lb Intake: IV Fluids 3090 2223 LR 3090 1243 NS (0.9%) 980 IVPB 55 110 ABX - CEFAZOLIN 55 110 Oral 1810 2020 400 Output: Urine 2455 Gastelum 4850 Other: Estimated Void Medium # Voids 1 Objective Active Medications: Acetaminophen (Tylenol Tab*) 975 mg PO Q8H [facility] Last Admin: 01/23/19 09:09 Dose: Not Given Apixaban (Eliquis*) 2.5 mg PO BID [facility] Last Admin: 01/23/19 09:18 Dose: 2.5 mg Atorvastatin Calcium (Lipitor*) 5 mg PO QAM [facility]; Protocol Last Admin: 01/23/19 09:19 Dose: 5 mg Bisacodyl (Dulcolax Supp*) 10 mg [place] DAILY PRN PRN Reason: CONSTIPATION Cyclobenzaprine HCl (Flexeril Tab*) 10 mg PO Q6H PRN PRN Reason: SPASMS Last Admin: 01/22/19 23:34 Dose: 10 mg Diphenhydramine HCl (Benadryl Iv*) 25 mg IV Q6H PRN PRN Reason: PRURITIS Diphenhydramine HCl (Benadryl Po*) 25 mg PO Q6H PRN PRN Reason: PRURITIS Lactulose (Lactulose*) 30 ml PO BID PRN PRN Reason: CONSTIPATION Last Admin: 01/22/19 20:06 Dose: 30 ml Magnesium Hydroxide (Milk Of Magnesia Liq*) 30 ml PO BID [facility] Last Admin: 01/23/19 09:20 Dose: 30 ml Magnesium Hydroxide (Milk Of Magnesia Liq*) 30 ml PO Q6H PRN PRN Reason: CONSTIPATION Metformin HCl (Glucophage*) 1,000 mg PO BID [facility] Last Admin: 01/23/19 09:19 Dose: 1,000 mg Metoprolol Tartrate (Lopressor Iv*) 5 mg IV Q6H PRN PRN Reason: Systolic Bp Greater Than:160 Last Admin: 01/23/19 04:20 Dose: 5 mg Morphine Sulfate (Morphine Inj (Syringe))*) 2 mg IV Q4H PRN PRN Reason: Pain - Unrelieved Last Admin: 01/22/19 23:59 Dose: 2 mg Multivitamins (Theragran Tab*) 1 tab PO DAILY [facility]YA Last Admin: 01/23/19 09:19 Dose: 1 tab Ondansetron HCl (Zofran Odt Tab*) 4 mg PO Q6H PRN PRN Reason: NAUSEA Oxycodone HCl (Roxycodone Tab*) 10 mg PO Q4H PRN PRN Reason: Pain - Breakthrough Last Admin: 01/22/19 23:36 Dose: 10 mg Oxycodone/Acetaminophen (Percocet 5/325 Tab*) 2 tab PO Q4H PRN PRN Reason: PAIN - SEVERE Last Admin: 01/23/19 09:19 Dose: 2 tab Polyethylene Glycol/Electrolytes (Miralax*) 17 gm PO DAILY PRN PRN Reason: Constipation Last Admin: 01/22/19 23:33 Dose: 17 gm Senna (Senokot 8.6 Mg Tab*) 1 tab PO BEDTIME PRN PRN Reason: if no BM during day Last Admin: 01/22/19 23:35 Dose: 1 tab Sitagliptin Phosphate (Januvia (Nf)) 100 mg PO QPM [facility]; Protocol Last Admin: 01/22/19 18:05 Dose: 100 mg Tramadol HCl (Ultram*) 50 mg PO Q6H PRN PRN Reason: PAIN - MODERATE Valsartan (Diovan Tab*) 80 mg PO QAM [facility]; Protocol Last Admin: 01/23/19 09:19 Dose: 80 mg Vital Signs - 8 hr 01/23/19 01/23/19 01/23/19 03:42 04:27 07:20 Temperature 99.7 F Pulse Rate 118 120 Respiratory 16 16 Rate Blood Pressure 168/87 140/80 (mmHg) O2 Sat by Pulse 95 Oximetry 01/23/19 01/23/19 08:42 09:19 Temperature 98 F Pulse Rate 127 Respiratory 18 16 Rate Blood Pressure 158/89 (mmHg) O2 Sat by Pulse 97 Oximetry Oxygen Devices in Use Now: None Appearance: well appearing man in NAD Ears/Nose/Mouth/Throat: Clear Oropharnyx, Mucous Membranes Moist Neck: NL Appearance and Movements; NL JVP, Trachea Midline Respiratory: Symmetrical Chest Expansion and Respiratory Effort, Clear to Auscultation Cardiovascular: - - tachycardic, reg rhythm, no mgr Abdominal: NL Sounds; No Tenderness; No Distention, No Hepatosplenomegaly Extremities: - - LLE with mild edema near knee - bandage c/d/i, RLE wwp without edema Skin: No Rash or Ulcers Neurological: Alert and Oriented x 3 Result Diagrams: 01/23/19 06:11 01/22/19 19:30 Assessment/Plan - Billing 59M with DM2, HTN, and obesity, presents for L knee TKA for severe L knee OA, s/ p procedure on 01/21. Post op course c/b tachycardia. Pt is well hydrated and denies significant pain or anxiety. Was not on a beta-louis at home. TSH wnl. EKG with sinus tachycardia. Likely too early for PE, and pt has been on apixaban post-op, but will check CTA Chest to explore for PE. Pt is not hypoxic or SOB. Other concern would be underlying infection, given temp to 100.2 last night. Blood cultures were drawn at that time. Will defer decision regarding knee infection to ortho team judgment. If CTA is positive for PE, would switch apixaban to 10mg bid for 7 days, followed by 5mg bid for 3 months. If CTA negative, would recommend ortho team explore for wound infection.
[2019-01-23 13:01] VITALS: BP 129/80
--- NOTE | 2019-01-23 13:32 | PN ---
Progress Note - Progress Note Date of Service: 01/23/19 Note: POD 2 s/p left TKA: Patient resting comfortably in bed breathing easily. He denies CP, SOB or calf pain. He has worked with PT and is doing well. His dressing is C/D/I. Dressing is changed today and wound appears benign without signs of infection without drainage and minimal erythema. Incisions are well approximated with intact sutures. Medicine has evaluated patient with multiple test for unexplained tachycardia, but all findings are benign and negative. As per medicine, he is cleared for discharge. He is orthopedically stable for discharge, therefore he will be sent home today.
--- NOTE | 2019-01-23 13:36 | DS ---
Orthopedic Discharge Summary - Discharge Summary Date of Admission:01/21/19 Date of Discharge: 01/23/19 Date of Surgery: 01/21/19 Attending Orthopedic Provider: Dr. Fox Pre-operative Diagnosis: Left knee osteoarthritis Operative Procedure: Left total knee arthroplasty Disposition of Patient: home Condition of Patient: Stable History: JORGE MCCORD is a 59 year old M with years of increasingly severe left knee pain. Patient has failed conservative management and has elected to undergo a Left total knee arthroplasty. Hospital Course: JORGE was admitted to [facility] on 01/21/19. Patient underwent a Left total knee arthroplasty without complication followed by a brief recovery in PACU and transfer to the Short Stay Surgical Unit in stable condition. Our hospitalist service, physical therapy and occupational therapy also participated in this patients care. Post-op day 1: patient was alert and in no acute distress. Dressing was clean, dry and intact. Operative extremity dorsiflexion and plantarflexion intact, sensation intact to light touch distally, DP2+. Post-op day two: dressing was changed, incision was clean , dry and intact. Patient was deemed to be medically and orthopedically stable for discharge. Physical therapy goals were met. Home Medications Medication Instructions Recorded Confirmed Type Pravastatin (NF) [Pravachol (NF)] 20 mg PO QAM 05/31/13 01/21/19 History metFORMIN* [Glucophage 500 MG TAB 1,000 mg PO BID 05/31/13 01/21/19 History *] Sitagliptin Phosphate [Januvia] 100 mg PO QPM 04/20/15 01/21/19 History Candesartan (NF) [Atacand (NF)] 16 mg PO QAM 04/20/18 01/21/19 History Apixaban* [Eliquis*] 2.5 mg PO BID tab 01/23/19 Rx Bisacodyl SUPP* [Dulcolax Supp*] 10 mg MO DAILY PRN supp 01/23/19 Rx Cyclobenzaprine TAB* [Flexeril 10 10 mg PO Q6H PRN tab 01/23/19 Rx MG TAB*] Discharge Instructions following Orthopedic Surgery: Activity: * Weight Bearing as tolerated * Continue physical therapy and occupational therapy exercises as shown Wound care: * OK to shower on post-op day 3, no bathing, swimming, or submerging wound. * Use gentle soap, pat dry. Cover with gauze, ROSITA wrap or tape. * Visiting home nurse to do wound checks. Call Orthopedic office for: * Increased drainage * Redness * Increased pain * Fever Go to ER with shortness of breath or chest pain. Diet: * Regular diet * Increase fluids and fiber to prevent constipation. * Continue to use stool softeners, call office if no bowel motion within 48 hours. Medications- [place] [facility] [place] See Home Medication List in your packet for medications that you should take after discharge. DVT Prophylaxis: Eliquis Dosin.5 mg, 1 tab every 12 hours x 30 days Pain Control: Percocet Dosin/325 mg 1-2 tabs by mouth every 4-6 hours as needed for pain. Maximum of 10 tabs per day. Cyclobenzaprine 10 mg by mouth three times daily as needed for muscle spasm. Please note that Percocet contains Tylenol (acetaminophen). Maximum daily dose of Tylenol is 4000 mg from all sources. Antibiotics are required prior to any dental work. FOLLOW UP: Follow up with Dr. Fox Within 10-14 days, call for appointment Please call our office with any questions or concerns ([phone])
[2019-01-24] MEDS ORDERED: Scopolamine PATCH Remove* 1 NOTE MISC PATCH OFF ONE (05:43)
== END 2019-01-23 16:00 | disposition home health service (06) | DRG 302 ==
LOC: AA 07:00 → SSU 12:44
PROVIDERS: ADMIT Orthopaedic Surgery Adult Reconstructive Orthopaedic Surgery; ATTEND Orthopaedic Surgery Adult Reconstructive Orthopaedic Surgery
PROC: 8E0Y0CZ Robotic Assisted Procedure of Lower Extremity, Open Approach (ICD-10-PCS; 2019-01-21)
PROC: 0SRD069 Replacement of Left Knee Joint with Oxidized Zirconium on Polyethylene Synthetic Substitute, Cemented, Open Approach (ICD-10-PCS; principal; 2019-01-21 09:45)
DX: M17.12 Unilateral primary osteoarthritis, left knee (principal); E11.9 Type 2 diabetes mellitus without complications; I10 Essential (primary) hypertension; Z96.651 Presence of right artificial knee joint; R00.0 Tachycardia, unspecified; E66.9 Obesity, unspecified; M25.762 Osteophyte, left knee; M25.462 Effusion, left knee; E78.00 Pure hypercholesterolemia, unspecified; E78.2 Mixed hyperlipidemia; Z68.36 Body mass index [BMI] 36.0-36.9, adult; Z79.84 Long term (current) use of oral hypoglycemic drugs; Z79.899 Other long term (current) drug therapy
CPT/HCPCS: 36415; 71275; 80048; 83605; 83735; 84443; 85014; 85018; 85025; 85049; 87040; 88305; 88311; 93005; A9270-GY; C1776; J0360; J0690; J1170; J2250; J2270; J2704; J2795; J3010; J3490; J8540; Q9967

== ENCOUNTER 2019-02-03 11:47 | Emergency (ER) | payer BC ==
[2019-02-03 13:15] LABS: Hematocrit 35 % (42-52); Mean Corpuscular HGB Conc 34 g/dL (31-36); Mean Corpuscular Hemoglobin 30 pg (27-31); Mean Corpuscular Volume 88 fL (80-94); Mean Platelet Volume 6.7 fL (7.4-10.4); Platelet Count 385 10^3/uL (150-450); Red Cell Distribution Width 14 % (10-15); White Blood Count 6.8 10^3/uL (3.5-10.8)
--- NOTE | 2019-02-03 13:30 | ED ---
Palpitations / Dysrhythmia - HPI Summary HPI Summary: Pt is a 59 y/o M presenting to the ED with a chief complaint of an arrhythmia. He was being seen at Dr. Pradhan office today post-knee replacement as well as having his tachycardia checked, and they did an EKG and advised him to come here. He has been tachycardic intermittently for many weeks. Had neg CTA while admitted. He denies any pain, including chest pain and abd pain, as well as SOB , blood clots, fever, or cough. Hx of DM, HTN, HLD. - History of Current Complaint Chief Complaint: EDDysrhythmPalp Time Seen by Provider: 02/03/19 12:55 Hx Obtained From: Patient Onset/Duration: Sudden Onset, Lasting Weeks, Still Present Timing: Constant Severity Initially: Moderate Severity Currently: Moderate Character: Fast Aggravating: Nothing Alleviating: Nothing Associated Signs & Symptoms: Negative - Allergy/Home Medications Allergies/Adverse Reactions: Allergies Allergy/AdvReac Type Severity Reaction Status Date / Time No Known Allergies Allergy Verified 01/21/19 07:58 Home Medications: Home Medications Apixaban* [Eliquis*] 5 mg PO BID 02/03/19 [History Confirmed 02/03/19] Cyclobenzaprine TAB* [Flexeril 10 MG TAB*] 10 mg PO TID PRN 02/03/19 [History Confirmed 02/03/19] Ibuprofen TAB* [Motrin TAB* 800 MG] 800 mg PO BID MDD 2 tabs 02/03/19 [History Confirmed 02/03/19] Sildenafil Citrate 50 - 100 mg PO ONCE PRN 02/03/19 [History Confirmed 02/03/19] PMH/Surg Hx/FS Hx/Imm Hx Previously Healthy: Yes Endocrine/Hematology History: Reports: Hx Diabetes - FINGER STICKS BID-TAKES METFORMIN & JANUVIA Denies: Hx Bone Marrow Disease, Hx Sickle Cell Disease, Hx Thyroid Disease, Hx Anemia Cardiovascular History: Reports: Hx Hypercholesterolemia, Hx Hypertension - ON CANDESARTAN, Other Cardiovascular Problems/Disorders - HYPERCHOLESTEROLEMIA- TAKES PRAVASTATIN Denies: Hx Pacemaker/ICD Respiratory History: Denies: Other Respiratory Problems/Disorders GI History: Denies: Hx Gastroesophageal Reflux Disease, Other GI Disorders History: Denies: Hx Kidney Infection, Hx Kidney Stones, Other Problems/Disorders Musculoskeletal History: Reports: Hx Arthritis - LEFT KNEE, Other Musculoskeletal History - LEFT KNEE Sensory History: Reports: Hx Cataracts - BILAT.-SURGERY SCHEDULED, Hx Contacts or Glasses - CONTACTS WILL BRING GLASSES Denies: Hx Glaucoma, Hx Hearing Aid Opthamlomology History: Reports: Hx Cataracts - BILAT.-SURGERY SCHEDULED, Hx Contacts or Glasses - CONTACTS WILL BRING GLASSES Denies: Hx Glaucoma Neurological History: Reports: Hx Seizures - 1 time a couple of years ago - none since Denies: Other Neuro Impairments/Disorders Psychiatric History: Denies: Hx Panic Disorder - Surgical History Surgery Procedure, Year, and Place: LUMBAR DISC, RT [facility]. LEFT ANKLE spiral FRACTURE ORIF RT [facility]. 2008 RIGHT KNEE SCOPE [place]. 2011 RIGHT GREAT TOE FUSION [facility]. Right elbow tendon rupture. 2015 Right knee arthroscopy/meniscus repair. RIGHT KNEE REPLACEMENT. Left total Knee. Hx Anesthesia Reactions: No Infectious Disease History: No Infectious Disease History: Denies: Hx of Known/Suspected MRSA, Traveled Outside the [place] in Last 30 Days - Family History Known Family History: Positive: Cardiac Disease - father [place] - Social History Alcohol Use: Weekly Alcohol Amount: 1-2 DRINKS/WEEK Hx Substance Use: No Substance Use Type: Reports: None Hx Tobacco Use: No Smoking Status (MU): Never Smoked Tobacco Have You Smoked in the Last Year: No Review of Systems Negative: Fever Positive: Palpitations. Negative: Chest Pain Negative: Shortness Of Breath, Cough Negative: Abdominal Pain All Other Systems Reviewed And Are Negative: Yes Physical Exam - Summary Physical Exam Summary: Constitutional: Well-developed, Well-nourished, Alert. (-) Distressed Skin: Warm, Dry HENT: Normocephalic; Atraumatic Eyes: Conjunctiva normal Neck: Musculoskeletal ROM normal neck. (-) JVD, (-) Stridor, (-) Nuchal rigidity Cardio: Rhythm regular, rate tachycardic, Heart sounds normal; Intact distal pulses; Radial pulses are 2+ and symmetric. (-) Murmur Pulmonary/Chest wall: Effort normal. (-) Respiratory distress, (-) Wheezes, (-) Rales Abd: Soft, (-) tenderness, (-) Distension, (-) Guarding, (-) Rebound Musculoskeletal: Healing wound to L knee w minimal swelling Lymph: (-) Cervical adenopathy Neuro: Alert, Oriented x3 Psych: Mood and affect Normal Triage Information Reviewed: Yes Vital Signs On Initial Exam: Initial Vitals Temp Pulse Resp BP Pulse Ox 97.5 F 110 16 145/80 98 02/03/19 11:54 02/03/19 11:54 02/03/19 11:54 02/03/19 11:54 02/03/19 11:54 Vital Signs Reviewed: Yes Procedures - Sedation Patient Received Moderate/Deep Sedation with Procedure: No Diagnostics - Vital Signs Vital Signs Temp Pulse Resp BP Pulse Ox 02/03/19 11:54 97.5 F 110 16 145/80 98 - Laboratory Lab Results: Lab Results 02/03/19 Range/Units 13:08 WBC 6.8 (3.5-10.8) 10^3/uL RBC 4.00 L (4.18-5.48) 10^6 /uL Hgb 12.0 L (14.0-18.0) g/dL Hct 35 L (42-52) % MCV 88 (80-94) fL MCH 30 (27-31) pg MCHC 34 (31-36) g/dL RDW 14 (10-15) % Plt Count 385 (150-450) 10^3/uL MPV 6.7 L (7.4-10.4) fL Neut % (Auto) Pending Lymph % (Auto) Pending Dougherty % (Auto) Pending Eos % (Auto) Pending Baso % (Auto) Pending Absolute Neuts (auto) Pending Absolute Lymphs (auto) Pending Absolute Monos (auto) Pending Absolute Eos (auto) Pending Absolute Basos (auto) Pending Absolute Nucleated RBC Pending Nucleated RBC % Pending Result Diagrams: 02/03/19 13:08 02/03/19 13:08 Lab Statement: Any lab studies that have been ordered have been reviewed, and results considered in the medical decision making process. - CT Chest/Thorax CTA CT Interpretation Completed By: Radiologist Summary of CT Findings: 1. NO PULMONARY ARTERIAL FILLING DEFECT TO SUGGEST PULMONARY EMBOLISM. 2. ECTASIA OF THE ASCENDING THORACIC AORTA UP TO 3.8 CM. 3. FATTY INFILTRATION OF THE LIVER. ED physician has reviewed this report. - EKG 1112 Cardiac Rate: Tachycardia - 114 EKG Rhythm: Sinus Tachycardia ST Segment: Normal Ectopy: None Summary of EKG Findings: EKG at 11:[address] Pradhan office shows sinus tachycardia at 114bpm with T-wave inversions in lead III. Dr. De León has reviewed and interpreted this EKG. 1152 Cardiac Rate: Tachycardia - 110 EKG Rhythm: Sinus Tachycardia ST Segment: Normal Ectopy: None EKG Comparison: No Significant Change Summary of EKG Findings: EKG at 11:52 shows sinus tachycardia at 110bpm with T- wave inversions in lead III. No change from prior. Dr. De León has reviewed and interpreted this EKG. Re-Evaluation - Re-Evaluation First Eval Re-Evaluation Time: 14:03 Comment: d dimer elevated, CTA ordered Second Eval Re-Evaluation Time: 15:25 Comment: CTA neg, HR dec to 101 w IVF. Course/Dx - Course Course Of Treatment: 59-year-old male history of diabetes and recent left knee replacement presents with tachycardia. - denies complaints. Differential includes dehydration, hyperthyroidism, PE. Patient denies pain, has had persistent tachycardia since knee replacement. On eliquis. Reports neg CTA in past. Did not have d dimer done at that time. Given persistent tachycardia will repeat CTA. Given IVF. - Will check labs including d dimer, CBC, electrolytes and TSH - Diagnoses Provider Diagnoses: Tachycardia Discharge ED - Sign-Out/Discharge Documenting (check all that apply): Patient Departure - Discharge Plan Condition: Stable Disposition: HOME Patient Education Materials: Tachycardia (ED) Referrals: Tony Reeder MD [Primary Care Provider] - Additional Instructions: You were seen in the emergency department for asked heart rate. Your labs did not show a cause for this. Your CT scan didn't show blood clot. If any studies were not completed at the time of discharge you will be called with the relevant results. Please follow up with your primary care doctor in next 2-3 days and return to emergency department for chest pain, passing out, or concerning symptoms. It was a pleasure taking care of you today. - Billing Disposition and Condition Condition: STABLE Disposition: Home - Attestation Statements Document Initiated by Jayneibe: Yes Documenting Scribe: Jessica Be Provider For Whom Natali is Documenting (Include Credential): Joshua De León MD. Scribe Attestation: I, Jessica Be, scribed for Joshua De León MD. on 02/03/19 at 1553. Scribe Documentation Reviewed: Yes Provider Attestation: The documentation as recorded by the scribe, Jessica Be accurately reflects the service I personally performed and the decisions made by me, Joshua De León MD. Status of Scribe Document: Viewed
[2019-02-03 13:40] LABS: Albumin 3.7 g/dL (3.2-5.2); Albumin/Globulin Ratio 1.1 (1-3); BUN/Creatinine Ratio 21.4 (8-20); Calcium 9.2 mg/dL (8.6-10.3); EGFR African American 139.7 (>60); EGFR Non-African American 115.4 (>60); Globulin 3.5 g/dL (2-4); Magnesium 1.8 mg/dL (1.9-2.7); Total Protein 7.2 g/dL (6.4-8.9)
[2019-02-03] MEDS ORDERED: Iodixanol* (CONTRAST) 320 MG/ML 100 ML SDV IV ONE ×2 (14:09→14:40)
[2019-02-03 14:13] LABS: TSH (Thyroid Stimulating Horm) 2.39 mcIU/mL (0.34-5.60)
[2019-02-03 14:17] LABS: ABS Basophils 0.1 10^3/ul (0-0.2); ABS Eosinophils 0.1 10^3/ul (0-0.6); ABS Lymphocytes 1.3 10^3/ul (1.0-4.8); ABS Monocytes 0.8 10^3/ul (0-0.8); ABS Neutrophils 4.5 10^3/ul (1.5-7.7); Eosinophil % 1.5 %; Lymphocyte % 19.4 %; Nucleated Red Blood Cells % 0.1
[2019-02-03] MEDS ORDERED: NS 0.9% 1000 ML** 1,000 ML IV ONE (15:04)
[2019-02-03 15:55] VITALS: BP 144/87
== END 2019-02-03 15:47 | disposition home or self-care (01) ==
LOC: ED 11:47
DX: R00.0 Tachycardia, unspecified (principal); I77.810 Thoracic aortic ectasia; K76.0 Fatty (change of) liver, not elsewhere classified; E11.9 Type 2 diabetes mellitus without complications; I10 Essential (primary) hypertension; E78.5 Hyperlipidemia, unspecified; Z96.653 Presence of artificial knee joint, bilateral; Z79.01 Long term (current) use of anticoagulants; Z79.84 Long term (current) use of oral hypoglycemic drugs; Z79.899 Other long term (current) drug therapy
CPT/HCPCS: 36415; 71275; 80053; 83735; 84443; 84484; 85025; 85379; 93005; 96360; 99283; Q9967